=== PATIENT | female | born 1970 | race American Indian/Alaskan Native ===

== ENCOUNTER 2016-08-11 00:22 | Emergency (ER) | payer OTHER ==
[2016-08-11] MEDS ORDERED: TYLENOL PO ONE (06:57)
[2016-08-11] MEDS ORDERED: KEFLEX PO ONE (06:57)
[2016-08-11] MEDS ORDERED: BOOSTRIX IM ONE (06:58)
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
[2016-08-11] MEDS ORDERED: THERMAZENE 50 GRAM TP ONE (08:00)
[2016-08-11 08:06] VITALS: BP 123/78
== END 2016-08-11 08:20 | disposition home or self-care (01) ==
LOC: ED 00:22
DX: T25.222A Burn of second degree of left foot, initial encounter (principal); I10 Essential (primary) hypertension; E11.9 Type 2 diabetes mellitus without complications; Z79.4 Long term (current) use of insulin; X12.XXXA Contact with other hot fluids, initial encounter; Y93.E1 Activity, personal bathing and showering; Y99.9 Unspecified external cause status; Y92.89 Other specified places as the place of occurrence of the external cause
CPT/HCPCS: 82962; 90471; 90715

== ENCOUNTER 2017-05-23 02:39 | Emergency (ER) | payer OTHER ==
[2017-05-23 02:57] VITALS: BP 143/73
[2017-05-23] MEDS: ULTRAM PO ONE (06:07)
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
== END 2017-05-23 06:41 | disposition home or self-care (01) ==
LOC: ED 02:39
DX: S16.1XXA Strain of muscle, fascia and tendon at neck level, initial encounter (principal); S39.012A Strain of muscle, fascia and tendon of lower back, initial encounter; I10 Essential (primary) hypertension; E11.9 Type 2 diabetes mellitus without complications; N17.9 Acute kidney failure, unspecified; V43.12XA Car passenger injured in collision with other type car in nontraffic accident, initial encounter; Y93.89 Activity, other specified; Y92.89 Other specified places as the place of occurrence of the external cause; Y99.8 Other external cause status
CPT/HCPCS: 99282

== ENCOUNTER 2017-09-11 20:22 | Emergency (ER) | payer OTHER ==
[2017-09-12] MEDS ORDERED: KEFLEX PO ONE (03:53)
[2017-09-12] MEDS ORDERED: TYLENOL PO ONE (03:53)
--- NOTE | 2017-09-12 03:54 | Emergency Department Report ---
ED Lower Extremity HPI - General Chief Complaint: Extremity Injury, Lower Stated Complaint: LEFT TOE PAIN HX DM Time Seen by Provider: 09/12/17 03:38 Source: patient Mode of arrival: Ambulatory Limitations: No Limitations - History of Present Illness Initial Comments: 46-year-old female past medical history diabetes, toe amputations presents with complaint of accidentally cutting the skin adjacent to her left great toe this evening. Patient states she was cutting her nail and accidentally snipped skin slightly had edge of the toenail. Patient denies any other injuries. Tetanus vaccine up-to-date as of 2014. Patient states that area is aching her. No large laceration noted. Patient is pointing out tiny less than 1 cm superficial abrasion to left lateral great toe. MD Complaint: other (left toe puncture) Onset/Timin -: hour(s) Injury: Toes: Left (left great toe abrasion) Place: home Severity: mild Worsens With: nothing Context: fall Associated Symptoms: snap/pop sensation Treatments Prior to Arrival: cold therapy - Related Data Home Medications Medication Instructions Recorded Confirmed Last Taken Bimatoprost [Lumigan 0.01%] 1 drop OD QPM 04/17/16 04/17/16 Unknown Insulin Glargine [Lantus VIAL] 15 units SUB-Q QHS 04/17/16 04/17/16 04/16/16 Timolol 0.5% [Timoptic] 1 drops OP BID 04/17/16 04/17/16 Unknown Torsemide [Demadex] 20 mg PO DAILY 04/17/16 04/17/16 Unknown Previous Rx's Medication Instructions Recorded Last Taken Type Metoprolol [Lopressor TAB] 50 mg PO BID 30 Days tablet 11/03/15 Unknown Rx HYDROcodone/APAP 7.5-325 [[place] 1 each PO Q8HR PRN #14 tablet 08/11/16 Unknown Rx 7.5-325 mg TAB] Silver Sulfadiazine [Thermazene] 50 gm TP BID #1 cream..g. 08/11/16 Unknown Rx Cephalexin [Keflex] 500 mg PO Q6HR #20 capsule 10/05/16 Unknown Rx Cyclobenzaprine [Flexeril] 10 mg PO TID PRN #30 tablet 05/23/17 Unknown Rx Naproxen [Naprosyn TAB] 500 mg PO BID PRN #30 tablet 05/23/17 Unknown Rx Bacitracin Zinc Oint [Antibiotic 1 applicatio TP BID #1 tube 09/12/17 Unknown Rx Oint] Cephalexin [Keflex] 500 mg PO BID #14 capsule 09/12/17 Unknown Rx Ibuprofen [Motrin] 400 mg PO Q8H PRN #20 tablet 09/12/17 Unknown Rx Allergies Allergy/AdvReac Type Severity Reaction Status Date / Time No Known Allergies Allergy Verified 10/04/16 22:43 ED Review of Systems ROS: Stated complaint: LEFT TOE PAIN HX DM Other details as noted in HPI Constitutional: denies: chills, fever Eyes: denies: eye pain, eye discharge, vision change ENT: denies: ear pain, throat pain Respiratory: denies: cough, shortness of breath, wheezing Cardiovascular: denies: chest pain, palpitations Endocrine: no symptoms reported Gastrointestinal: denies: abdominal pain, nausea, diarrhea Genitourinary: denies: urgency, dysuria, discharge Musculoskeletal: denies: back pain, joint swelling, arthralgia Skin: denies: rash, lesions Neurological: denies: headache, weakness, paresthesias Psychiatric: denies: anxiety, depression Hematological/Lymphatic: denies: easy bleeding, easy bruising ED Past Medical Hx - Past Medical History Previous Medical History?: Yes Hx Hypertension: Yes Hx Diabetes: Yes Hx Renal Disease: Yes (acute renal failure, resolving) 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 - Surgical History Past Surgical History?: Yes Hx Pacemaker: Yes Additional Surgical History: R great toe amputation 2015 - Social History Smoking Status: Never Smoker Substance Use Type: None - Medications Home Medications: Home Medications Medication Instructions Recorded Confirmed Last Taken Type Metoprolol [Lopressor TAB] 50 mg PO BID 30 Days tablet 11/03/15 04/17/16 Unknown Rx Bimatoprost [[place]um[place] 0.01%] 1 drop OD QPM 04/17/16 04/17/16 Unknown History Insulin Glargine [Lantus VIAL] 15 units SUB-Q QHS 04/17/16 04/17/16 04/16/16 History Timolol 0.5% [Timoptic] 1 drops OP BID 04/17/16 04/17/16 Unknown History Torsemide [Demadex] 20 mg PO DAILY 04/17/16 04/17/16 Unknown History HYDROcodone/APAP 7.5-325 [[place] 1 each PO Q8HR PRN #14 tablet 08/11/16 Unknown Rx 7.5-325 mg TAB] Silver Sulfadiazine [Thermazene] 50 gm TP BID #1 cream..g. 08/11/16 Unknown Rx Cephalexin [Keflex] 500 mg PO Q6HR #20 capsule 10/05/16 Unknown Rx Cyclobenzaprine [Flexeril] 10 mg PO TID PRN #30 tablet 05/23/17 Unknown Rx Naproxen [Naprosyn TAB] 500 mg PO BID PRN #30 tablet 05/23/17 Unknown Rx Bacitracin Zinc Oint [Antibiotic 1 applicatio TP BID #1 tube 09/12/17 Unknown Rx Oint] Cephalexin [Keflex] 500 mg PO BID #14 capsule 09/12/17 Unknown Rx Ibuprofen [Motrin] 400 mg PO Q8H PRN #20 tablet 09/12/17 Unknown Rx ED Physical Exam - General Limitations: No Limitations General appearance: alert, in no apparent distress - Head Head exam: Present: atraumatic, normocephalic - Eye Eye exam: Present: normal appearance, PERRL, EOMI - ENT ENT exam: Present: mucous membranes moist - Neck Neck exam: Present: normal inspection - Respiratory Respiratory exam: Present: normal lung sounds bilaterally. Absent: respiratory distress - Cardiovascular Cardiovascular Exam: Present: regular rate, normal rhythm. Absent: systolic murmur, diastolic murmur, rubs, gallop - GI/Abdominal GI/Abdominal exam: Present: soft, normal bowel sounds - Extremities Exam Extremities exam: Present: normal inspection - Expanded Lower Extremity Exam Left Knee exam: Present: normal inspection, full ROM Lower Leg exam: Present: normal inspection, full ROM Ankle exam: Present: normal inspection, full ROM Foot/Toe exam: Present: abrasion (tiny less than half centimeter lesion to the left anterior lateral great toe. Adjacent to lateral edge of nail bed. No involvement of the nailbed. Nail is intact. No clinical paronychia or fluctuance on exam. Distal capillary refill less than 1 second) Neuro vascular tendon exam: Present: no vascular compromise Gait: Positive: observed and normal 1 - Abrasion here - Back Exam Back exam: Present: normal inspection - Neurological Exam Neurological exam: Present: alert, oriented X3, CN II-XII intact, normal gait - Psychiatric Psychiatric exam: Present: normal affect, normal mood - Skin Skin exam: Present: warm, dry, intact, normal color. Absent: rash ED Course Vital Signs 09/11/17 21:38 Temperature 98.0 F Pulse Rate 91 H Respiratory 17 Rate Blood Pressure 167/91 O2 Sat by Pulse 100 Oximetry ED Lower Extremity MDM - Medical Decision Making A/P: Left great toe abrasion 1-tetanus vaccine up-to-date 2-Motrin when necessary 3-course of Keflex 7 days 4- follow-up with podiatry I provided patient with referral information Critical care attestation.: If time is entered above; I have spent that time in minutes in the direct care of this critically ill patient, excluding procedure time. ED Disposition Clinical Impression: Abrasion of toe of left foot Qualifiers: Encounter type: initial encounter Qualified Code(s): S90.415A - Abrasion, left lesser toe(s), initial encounter Disposition: - TO HOME OR SELFCARE Is pt being admited?: No Does the pt Need Aspirin: No Condition: Stable Instructions: Abrasion (ED) Additional Instructions: [facility] [address] [place] [address] [phone] fax Prescriptions: Bacitracin Zinc Oint [Antibiotic Oint] 1 applicatio TP BID #1 tube Cephalexin [Keflex] 500 mg PO BID #14 capsule Ibuprofen [Motrin] 400 mg PO Q8H PRN #20 tablet PRN Reason: Pain Referrals: QIAN TRAVIS DPM [Staff Physician] - 3-5 Days Time of Disposition: 03:54
[2017-09-12] MEDS ORDERED: TRIPLE ANTIBIOTIC TP ONE (03:57)
[2017-09-12 05:06] VITALS: BP 140/88
== END 2017-09-12 04:20 | disposition home or self-care (01) ==
LOC: ED 20:22
DX: S90.415A Abrasion, left lesser toe(s), initial encounter (principal); I10 Essential (primary) hypertension; E11.9 Type 2 diabetes mellitus without complications; W45.0XXA Nail entering through skin, initial encounter; Y93.89 Activity, other specified; Y92.89 Other specified places as the place of occurrence of the external cause; Y99.8 Other external cause status; Z79.4 Long term (current) use of insulin
CPT/HCPCS: 99282; A6250

== ENCOUNTER 2018-12-02 18:50 | Emergency (ER) | payer MEDICARE, OTHER ==
[2018-12-02 19:49] VITALS: BP 147/77
--- NOTE | 2018-12-02 21:08 | Emergency Department Report ---
ED General Adult HPI - General Chief complaint: Extremity Problem,Nontraumatic Stated complaint: TOE INFECTED Time Seen by Provider: 12/02/18 21:00 Source: patient Mode of arrival: Ambulatory Limitations: No Limitations - History of Present Illness Initial comments: 48 year female with pmh of DM and previous toe amputation presents to ED c/o toe swelling without pain and wants it evaluated for infection. Has appointment with her wound doctor this tuesday and just wants to be sure she could wait. Denies discharge or fever. no redness or pain. Denies trauma. -: Gradual Location: lower extremity Radiation: non-radiation Severity scale (0 -10): 0 Worsens with: none Associated Symptoms: denies other symptoms. denies: diaphoresis, headaches, loss of appetite, malaise, nausea/vomiting, shortness of breath, syncope Treatments Prior to Arrival: none - Related Data Home Medications Medication Instructions Recorded Confirmed Last Taken Bimatoprost [Lumigan 0.01%] 1 drop OD QPM 04/17/16 04/17/16 Unknown Insulin Glargine [Lantus VIAL] 15 units SUB-Q QHS 04/17/16 04/17/16 04/16/16 Timolol 0.5% [Timoptic] 1 drops OP BID 04/17/16 04/17/16 Unknown Torsemide [Demadex] 20 mg PO DAILY 04/17/16 04/17/16 Unknown Previous Rx's Medication Instructions Recorded Last Taken Type Metoprolol [Lopressor TAB] 50 mg PO BID 30 Days tablet 11/03/15 Unknown Rx HYDROcodone/APAP 7.5-325 [[place] 1 each PO Q8HR PRN #14 tablet 08/11/16 Unknown Rx 7.5-325 mg TAB] Silver Sulfadiazine [Thermazene] 50 gm TP BID #1 cream..g. 08/11/16 Unknown Rx cephALEXin [Keflex] 500 mg PO Q6HR #20 capsule 10/05/16 Unknown Rx Cyclobenzaprine [Flexeril] 10 mg PO TID PRN #30 tablet 05/23/17 Unknown Rx Naproxen [Naprosyn TAB] 500 mg PO BID PRN #30 tablet 05/23/17 Unknown Rx Bacitracin Zinc Oint [Antibiotic 1 applicatio TP BID #1 tube 09/12/17 Unknown Rx Oint] Cephalexin [Keflex] 500 mg PO BID #14 capsule 09/12/17 Unknown Rx Ibuprofen [Motrin] 400 mg PO Q8H PRN #20 tablet 09/12/17 Unknown Rx Allergies Allergy/AdvReac Type Severity Reaction Status Date / Time No Known Allergies Allergy Verified 12/02/18 19:20 ED Review of Systems ROS: Stated complaint: TOE INFECTED Other details as noted in HPI Constitutional: denies: chills, fever Eyes: denies: eye pain, eye discharge, vision change ENT: denies: ear pain, throat pain Respiratory: denies: cough, shortness of breath, wheezing Cardiovascular: denies: chest pain, palpitations Endocrine: no symptoms reported Gastrointestinal: denies: abdominal pain, nausea, diarrhea Genitourinary: denies: urgency, dysuria, discharge Musculoskeletal: denies: back pain, joint swelling, arthralgia Skin: denies: rash, lesions Neurological: denies: headache, weakness, paresthesias Psychiatric: denies: anxiety, depression Hematological/Lymphatic: denies: easy bleeding, easy bruising ED Past Medical Hx - Past Medical History Hx Hypertension: Yes Hx Diabetes: Yes Hx Renal Disease: Yes (acute renal failure, resolving) 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 - Surgical History Hx Pacemaker: Yes Additional Surgical History: R great toe amputation 2015 - Social History Smoking Status: Never Smoker Substance Use Type: None - Medications Home Medications: Home Medications Medication Instructions Recorded Confirmed Last Taken Type Metoprolol [Lopressor TAB] 50 mg PO BID 30 Days tablet 11/03/15 04/17/16 Unknown Rx Bimatoprost [Lumigan 0.01%] 1 drop OD QPM 04/17/16 04/17/16 Unknown History Insulin Glargine [Lantus VIAL] 15 units SUB-Q QHS 04/17/16 04/17/16 04/16/16 History Timolol 0.5% [Timoptic] 1 drops OP BID 04/17/16 04/17/16 Unknown History Torsemide [Demadex] 20 mg PO DAILY 04/17/16 04/17/16 Unknown History HYDROcodone/APAP 7.5-325 [[place] 1 each PO Q8HR PRN #14 tablet 08/11/16 Unknown Rx 7.5-325 mg TAB] Silver Sulfadiazine [Thermazene] 50 gm TP BID #1 cream..g. 08/11/16 Unknown Rx cephALEXin [Keflex] 500 mg PO Q6HR #20 capsule 10/05/16 Unknown Rx Cyclobenzaprine [Flexeril] 10 mg PO TID PRN #30 tablet 05/23/17 Unknown Rx Naproxen [Naprosyn TAB] 500 mg PO BID PRN #30 tablet 05/23/17 Unknown Rx Bacitracin Zinc Oint [Antibiotic 1 applicatio TP BID #1 tube 09/12/17 Unknown Rx Oint] Cephalexin [Keflex] 500 mg PO BID #14 capsule 09/12/17 Unknown Rx Ibuprofen [Motrin] 400 mg PO Q8H PRN #20 tablet 09/12/17 Unknown Rx ED Physical Exam - General Limitations: No Limitations General appearance: alert, in no apparent distress - Head Head exam: Present: atraumatic, normocephalic - Eye Eye exam: Present: normal appearance - ENT ENT exam: Present: mucous membranes moist - Neck Neck exam: Present: normal inspection - Respiratory Respiratory exam: Present: normal lung sounds bilaterally. Absent: respiratory distress - Cardiovascular Cardiovascular Exam: Present: regular rate, normal rhythm. Absent: systolic murmur, diastolic murmur, rubs, gallop - GI/Abdominal GI/Abdominal exam: Present: soft, normal bowel sounds - Extremities Exam Extremities exam: Present: normal inspection - Expanded Lower Extremity Exam Right Foot/Toe exam: Present: swelling (mild swelling to toe and thicken toenail. no cellulitis. no fissure. normal skin). Absent: full ROM, tenderness, laceration, ecchymosis, erythema, amputation, puncture wound - Back Exam Back exam: Present: normal inspection - Neurological Exam Neurological exam: Present: alert, oriented X3 - Psychiatric Psychiatric exam: Present: normal affect, normal mood - Skin Skin exam: Present: warm, dry, intact, normal color. Absent: rash ED Course Vital Signs 12/02/18 19:19 Temperature 98.6 F Pulse Rate 91 H Respiratory 18 Rate Blood Pressure 147/77 O2 Sat by Pulse 100 Oximetry ED Medical Decision Making - Medical Decision Making 48 year old female whom just wanted to have her toe check for infection. exam shows no active skin infection, wounds, injury. Possible onychomycosis noted. Pain free and no fever. No discharge. does not appear to have a toe infection. Critical care attestation.: If time is entered above; I have spent that time in minutes in the direct care of this critically ill patient, excluding procedure time. ED Disposition Clinical Impression: Toe swelling Disposition: DC-01 TO HOME OR SELFCARE Is pt being admited?: No Does the pt Need Aspirin: No Condition: Stable Referrals: PRIMARY CARE, [Referring] - 3-5 Days
== END 2018-12-02 21:09 | disposition home or self-care (01) ==
LOC: ED 18:50
DX: M79.89 Other specified soft tissue disorders (principal); I10 Essential (primary) hypertension; E11.9 Type 2 diabetes mellitus without complications; N17.9 Acute kidney failure, unspecified; Z95.0 Presence of cardiac pacemaker; Z89.411 Acquired absence of right great toe; Z79.4 Long term (current) use of insulin
CPT/HCPCS: 99281

== ENCOUNTER 2020-09-09 12:02 | Outpatient (CLI) | payer MEDICARE, OTHER ==
[2020-09-09 12:43] LABS: Basophils % (Auto) 0.1 % (0.0-1.8); Eosinophils # (Auto) 0.1 K/mm3 (0.0-0.4); Eosinophils % (Auto) 1.1 % (0.0-4.3); Hematocrit 25.9 % (30.3-42.9); Hemoglobin 8.7 gm/dl (10.1-14.3); Lymphocytes # (Auto) 0.8 K/mm3 (1.2-5.4); Mean Corpuscular HGB Conc 34 % (30-34); Mean Corpuscular Volume 86 fl (79-97); Monocytes # (Auto) 0.3 K/mm3 (0.0-0.8); Monocytes % (Auto) 6.7 % (0.0-7.3); Platelet Count 122 K/mm3 (140-440); Red Blood Count 3.01 M/mm3 (3.65-5.03); Red Cell Distribution Width 14.4 % (13.2-15.2)
[2020-09-09 13:09] LABS: Calcium 8.4 mg/dL (8.4-10.2)
--- NOTE | 2020-09-09 13:26 | XRay Report ---
CHEST 2 VIEWS INDICATION: CHRONIC KIDNEY DISEASE,STAGE 4. COMPARISON: None FINDINGS: Support devices: None. Heart: Within normal limits. Lungs/pleura: Small bilateral pleural effusions, left greater than right, are identified. There is m ild compressive atelectasis at the lung bases. Otherwise the lungs are clear. No pneumothorax. Additional findings: None. IMPRESSION: Small bilateral pleural effusions. Signer Name: Mundo Berrios Jr, MD Signed: 09/09/2020 1:22 PM Workstation Name: [id number]
[2020-09-09 13:43] LABS: Bacteria,Urine 2+ /HPF (Negative); Bilirubin,Urine NEG (Negative); Blood,Urine SM (Negative); Color,Urine Yellow (Yellow); Mucus,Urine FEW /HPF; Urobilinogen,Urine < 2.0 mg/dL (<2.0)
[2020-09-09 13:45] LABS: Protein,Urine >500 mg/dL (Negative)
[2020-09-09 13:51] LABS: Creatinine,Urine 198.7 mg/dL (0.1-20.0); Protein/Creatinine Ratio,Urine 0.91
== END 2020-09-09 12:03 | disposition home or self-care (01) ==
LOC: CARD 12:02
PROVIDERS: ATTEND Internal Medicine Nephrology
DX: J90 Pleural effusion, not elsewhere classified (principal); J98.11 Atelectasis; I12.9 Hypertensive chronic kidney disease with stage 1 through stage 4 chronic kidney disease, or unspecified chronic kidney disease; N18.4 Chronic kidney disease, stage 4 (severe)
CPT/HCPCS: 36415; 71046; 80048; 81001; 82570; 83970; 84100; 84156; 85025; 86706; 93005

== ENCOUNTER 2020-10-28 23:45 | Emergency (ER) | payer MEDICARE, OTHER ==
[2020-10-29] MEDS ORDERED: HYDROcodone/ACETAMINOPHEN 5-325 MG TAB PO ONE (05:12)
--- NOTE | 2020-10-29 05:16 | Emergency Department Report ---
ED General Adult HPI - General Stated complaint: headache PUI?: No Time Seen by Provider: 10/29/20 04:45 - History of Present Illness Initial comments: Patient is a 49-year-old -[place] female history of hypertension end-st age renal disease dialysis on Tuesday and Tuesday. Patient has dialysis scheduled today. Patient states headache since yesterday. Occipital pressure squeezing. Patient does have history of same. Headache is in usual location and intensity and duration to this point. There is no photophobia there is no nausea vomiting there is no fever or chills. Patient is not sexually active not concerned for . She declines UA at this time. Advises that she is just ready to go to dialysis. There is no dizziness, lightheadedness, chest pain, shortness of breath or back pain. Vital signs are normal. - Related Data Home Medications Medication Instructions Recorded Confirmed Last Taken Bimatoprost [Lumigan 0.01%] 1 drop OD QPM 04/17/16 04/17/16 Unknown Insulin Glargine [Lantus VIAL] 15 units SUB-Q QHS 04/17/16 04/17/16 04/16/16 Timolol 0.5% [Timoptic] 1 drops OP BID 04/17/16 04/17/16 Unknown Torsemide [Demadex] 20 mg PO DAILY 04/17/16 04/17/16 Unknown Previous Rx's Medication Instructions Recorded Last Taken Type Metoprolol [Lopressor TAB] 50 mg PO BID 30 Days tablet 11/03/15 Unknown Rx HYDROcodone/APAP 7.5-325 [[place] 1 each PO Q8HR PRN #14 tablet 08/11/16 Unknown Rx 7.5-325 mg TAB] Silver Sulfadiazine [Thermazene] 50 gm TP BID #1 cream..g. 08/11/16 Unknown Rx cephALEXin [Keflex] 500 mg PO Q6HR #20 capsule 10/05/16 Unknown Rx Cyclobenzaprine [Flexeril] 10 mg PO TID PRN #30 tablet 05/23/17 Unknown Rx Naproxen [Naprosyn TAB] 500 mg PO BID PRN #30 tablet 05/23/17 Unknown Rx Bacitracin Zinc Oint [Antibiotic 1 applicatio TP BID #1 tube 09/12/17 Unknown Rx Oint] Ibuprofen [Motrin] 400 mg PO Q8H PRN #20 tablet 09/12/17 Unknown Rx cephALEXin [Keflex] 500 mg PO BID #14 capsule 09/12/17 Unknown Rx Acetaminophen 1,000 mg PO Q6H PRN #30 capsule 10/29/20 Unknown Rx Metoclopramide [Reglan] 10 mg PO Q6H PRN #12 tablet 10/29/20 Unknown Rx diphenhydrAMINE [Benadryl CAP] 25 mg PO Q6HR PRN #12 capsule 10/29/20 Unknown Rx Allergies Allergy/AdvReac Type Severity Reaction Status Date / Time No Known Allergies Allergy Verified 12/02/18 19:20 ED Review of Systems ROS: Stated complaint: Other details as noted in HPI Constitutional: denies: chills, fever Eyes: denies: eye pain, eye discharge, vision change ENT: denies: ear pain, throat pain Respiratory: denies: cough, shortness of breath, wheezing Cardiovascular: denies: chest pain, palpitations Endocrine: no symptoms reported Gastrointestinal: denies: abdominal pain, nausea, vomiting, diarrhea Genitourinary: denies: urgency, dysuria, discharge Musculoskeletal: denies: back pain, joint swelling, arthralgia Skin: denies: rash, lesions Neurological: headache. 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 - Surgical History Hx Pacemaker: Yes Additional Surgical History: R great toe amputation 2015 - Social History Smoking Status: Never Smoker Substance Use Type: None - Medications Home Medications: Home Medications Medication Instructions Recorded Confirmed Last Taken Type Metoprolol [Lopressor TAB] 50 mg PO BID 30 Days tablet 11/03/15 04/17/16 Unknown Rx Bimatoprost [Lumigan 0.01%] 1 drop OD QPM 04/17/16 04/17/16 Unknown History Insulin Glargine [Lantus VIAL] 15 units SUB-Q QHS 04/17/16 04/17/16 04/16/16 History Timolol 0.5% [Timoptic] 1 drops OP BID 04/17/16 04/17/16 Unknown History Torsemide [Demadex] 20 mg PO DAILY 04/17/16 04/17/16 Unknown History HYDROcodone/APAP 7.5-325 [[place] 1 each PO Q8HR PRN #14 tablet 08/11/16 Unknown Rx 7.5-325 mg TAB] Silver Sulfadiazine [Thermazene] 50 gm TP BID #1 cream..g. 08/11/16 Unknown Rx cephALEXin [Keflex] 500 mg PO Q6HR #20 capsule 10/05/16 Unknown Rx Cyclobenzaprine [Flexeril] 10 mg PO TID PRN #30 tablet 05/23/17 Unknown Rx Naproxen [Naprosyn TAB] 500 mg PO BID PRN #30 tablet 05/23/17 Unknown Rx Bacitracin Zinc Oint [Antibiotic 1 applicatio TP BID #1 tube 09/12/17 Unknown Rx Oint] Ibuprofen [Motrin] 400 mg PO Q8H PRN #20 tablet 09/12/17 Unknown Rx cephALEXin [Keflex] 500 mg PO BID #14 capsule 09/12/17 Unknown Rx Acetaminophen 1,000 mg PO Q6H PRN #30 capsule 10/29/20 Unknown Rx Metoclopramide [Reglan] 10 mg PO Q6H PRN #12 tablet 10/29/20 Unknown Rx diphenhydrAMINE [Benadryl CAP] 25 mg PO Q6HR PRN #12 capsule 10/29/20 Unknown Rx ED Physical Exam - General General appearance: alert, in no apparent distress - Head Head exam: Present: atraumatic, normocephalic, normal inspection - Eye Eye exam: Present: normal appearance, PERRL, EOMI Pupils: Present: normal accommodation - ENT ENT exam: Present: normal exam, normal orophraynx, mucous membranes moist, TM's normal bilaterally, normal external ear exam - Neck Neck exam: Present: normal inspection, full ROM. Absent: tenderness (rom intact and unrestricted no posterior vertebral point tenderness ), meningismus, lymphadenopathy, thyromegaly - Expanded Neck Exam Expanded Neck exam: Absent: midline deformity, anterior neck swelling, thyroid mass, carotid bruit, tracheal deviation - Respiratory Respiratory exam: Present: normal lung sounds bilaterally, wheezes. Absent: respiratory distress - Cardiovascular Cardiovascular Exam: Present: regular rate, normal rhythm, normal heart sounds. Absent: systolic murmur, diastolic murmur, rubs, gallop - GI/Abdominal GI/Abdominal exam: Present: soft, normal bowel sounds. Absent: distended, tenderness, guarding, rebound, rigid, bruit, hernia - Rectal Rectal exam: Present: deferred - Extremities Exam Extremities exam: Present: normal inspection - Back Exam Back exam: Present: normal inspection, full ROM. Absent: tenderness, CVA tenderness (R), CVA tenderness (L) - Neurological Exam Neurological exam: Present: alert, oriented X3, CN II-XII intact, normal gait, reflexes normal. Absent: motor sensory deficit - Expanded Neurological Exam Expanded Patient oriented to: Present: person, place, time Speech: Present: fluid speech Motor strength exam: RUE: 5, LUE: 5, RLE: 5, LLE: 5 Best Eye Response ([place]): (4) open spontaneously Best Motor Response ([place]): (6) obeys commands Best Verbal Response ([place]): (5) oriented [place] Total: 15 - Psychiatric Psychiatric exam: Present: normal affect, normal mood - Skin Skin exam: Present: warm, dry, intact, normal color. Absent: rash ED Medical Decision Making - Medical Decision Making Patient is a 49-year-old -[place] female history of hypertension end- stage renal disease dialysis on Tuesday and Tuesday. Patient has dialysis scheduled today. Patient states headache since yesterday. Occipital pressure squeezing. Patient does have history of same. Headache is in usual location and intensity and duration to this point. There is no photophobia there is no nausea vomiting there is no fever or chills. Patient is not sexually active not concerned for . She declines UA at this time. Advises that she is just ready to go to dialysis. There is no dizziness, lightheadedness, chest pain, shortness of breath or back pain. Vital signs are normal. Patie rate currently is 72 BP is 128/81. Patient is DC'd home in stable condition at this time to self at this time. Patient will follow-up with dialysis center and 1 hour for dialysis as scheduled. Heart Critical care attestation.: If time is entered above; I have spent that time in minutes in the direct care of this critically ill patient, excluding procedure time. ED Disposition Clinical Impression: Headache Qualifiers: Headache type: tension-type Headache chronicity pattern: acute headache Intractability: not intractable Qualified Code(s): G44.209 - Tension-type headache, unspecified, not intractable Disposition: DC-01 TO HOME OR SELFCARE Is pt being admited?: No Does the pt Need Aspirin: No Condition: Stable Instructions: Tension Headache, Adult, [id number] Additional Instructions: follow up with Dialysis Center this morning as scheduled, follow up with primary care doctor as directed Prescriptions: Acetaminophen 1,000 mg PO Q6H PRN #30 capsule PRN Reason: Headache diphenhydrAMINE [Benadryl CAP] 25 mg PO Q6HR PRN #12 capsule PRN Reason: Headache Metoclopramide [Reglan] 10 mg PO Q6H PRN #12 tablet PRN Reason: Headache Referrals: CAROL MANNING MD [Primary Care Provider] - 3-5 Days Time of Disposition: 05:25 Print Language: TELUGU
[2020-10-29 05:37] VITALS: BP 121/86
--- NOTE | 2020-10-29 14:28 | Cat Scan Report ---
CT HEAD/BRAIN WO CON INDICATION: Pre-syncope, Cephalopathy. Headache x 3 days. TECHNIQUE: All CT scans at this location are performed using CT dose reduction for ALARA by means of automated e xposure control. COMPARISON: 03/29/2016 FINDINGS: Visualized paranasal and mastoid sinuses are clear. Ventricles are symmetrical and normal in size. No mass, hemorrhage or other significant abnormality. IMPRESSION: 1. Negative study. Signer Name: Juan Monet MD Signed: 10/29/2020 2:18 AM Workstation Name: [id number]
== END 2020-10-29 05:35 | disposition home or self-care (01) ==
LOC: ED 23:45
DX: R51.9 Headache, unspecified (principal); I10 Essential (primary) hypertension; E11.9 Type 2 diabetes mellitus without complications; Z98.890 Other specified postprocedural states; Z79.1 Long term (current) use of non-steroidal anti-inflammatories (NSAID); Z79.899 Other long term (current) drug therapy
CPT/HCPCS: 70450

== ENCOUNTER 2020-11-11 08:00 | Inpatient (IN) | payer MEDICARE, OTHER ==
[~2020-11-11 08:00] MED LIST: MIDAZOLAM 2 MG/2 ML INJ IV NR; SODIUM CHLORIDE 0.9% 1000 ML 1,000 ML IV SCH; ceFAZolin/Water 2 GM/20 ML 2 GM/20 ML SYRINGE IV NR; fentaNYL 100 MCG/2 ML INJ IV PRN
[2020-11-11 09:11] LABS: Hematocrit 40.9 % (30.3-42.9); Hemoglobin 13.1 gm/dl (10.1-14.3); Mean Corpuscular HGB Conc 32 % (30-34); Mean Corpuscular Volume 90 fl (79-97); Platelet Count 84 K/mm3 (140-440); Red Blood Count 4.55 M/mm3 (3.65-5.03); Red Cell Distribution Width 15.5 % (13.2-15.2)
[2020-11-11 09:22] LABS: Calcium 8.5 mg/dL (8.4-10.2)
--- NOTE | 2020-11-11 09:26 | Anesthesia Consultation ---
Anesthesia Consult and Med Hx Date of service: 11/11/20 - Airway Anesthetic Teeth Evaluation: Poor ROM Head & Neck: Adequate Mental/Hyoid Distance: Adequate Mallampati Class: Class III Intubation Access Assessment: Possibly Difficult - Pre-Operative Health Status ASA Pre-Surgery Classification: ASA3 Proposed Anesthetic Plan: General - Pre-Anesthesia Comment Pre-Anesthesia Comments: Discussed GA vs regional/MAC. Patient requests GA. 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
--- NOTE | 2020-11-11 09:27 | Anesthesia Day of Surgery ---
Anesthesia Day of Surgery - Day of Surgery Patient Examined: Yes Patient H&P Reviewed: Yes Patient is NPO: Yes Beta Blockers: Yes (coreg yesterday PM)
[2020-11-11] MEDS ORDERED: ONDANSETRON 4 MG/2 ML INJ IV PRN ×2 (09:28→15:30)
[2020-11-11] MEDS ORDERED: BUPIVACAINE/PF (0.5%) 5 MG/1 ML 30 ML VIAL INFILTRATI ONE ×2 (11:08→12:13)
[2020-11-11] MEDS ORDERED: LIDOCAINE (1%) 10 MG/1 ML VIAL 20 ML MDV ONE (11:08)
[2020-11-11] MEDS ORDERED: rifAMPin 600 MG VIAL ONE (11:09)
[2020-11-11] MEDS ORDERED: SODIUM CHLORIDE 0.45% 500 ML IV ONE (11:09)
[2020-11-11] MEDS ORDERED: HEPARIN 10,000 UNITS/10 ML VIAL ONE (11:09)
[2020-11-11] MEDS ORDERED: SODIUM CHLORIDE P/F VIAL 10 ML 0 ML ONE (11:09)
[2020-11-11] MEDS ORDERED: propofoL 200 MG/20 ML VIAL IV ONE (11:21)
[2020-11-11] MEDS ORDERED: fentaNYL 100 MCG/2 ML INJ ONE (11:38)
[2020-11-11] MEDS ORDERED: SODIUM CHLORIDE 0.9% 250ML 250 ML ONE (11:45)
[2020-11-11] MEDS ORDERED: PHENYLEPHRINE/NS 1,000 MCG/10 ML SYRINGE (OR USE) IV ONE ×2 (11:49→14:05)
[2020-11-11] MEDS ORDERED: SODIUM CHLORIDE 0.9% 250 ML IVPB IR ONE (12:11)
[2020-11-11] MEDS ORDERED: HEPARIN 10,000 UNITS/10 ML VIAL IR ONE (12:12)
[2020-11-11] MEDS ORDERED: rifAMPin 600 MG VIAL IV ONE (12:14)
[2020-11-11] MEDS ORDERED: SODIUM CHLORIDE 0.9% IRR 1,500 ML BOTTLE IR ONE (12:14)
[2020-11-11] MEDS ORDERED: ONDANSETRON 4 MG/2 ML INJ ONE (14:04)
[2020-11-11] MEDS ORDERED: ePHEDrine SULFATE 50 MG/1 ML INJ ONE (14:06)
[2020-11-11] MEDS ORDERED: GELATIN SPONGE SIZE 100 TP ONE ×2 (14:07→14:48)
[2020-11-11] MEDS ORDERED: THROMBIN (RECOMBINANT) 5,000 UNIT VIAL TP ONE ×2 (14:07→14:47)
[2020-11-11] MEDS ORDERED: ALBUMIN HUMAN 25% (25 GM/100 ML) INJ IV ONE (14:25)
[2020-11-11] MEDS ORDERED: DESMOPRESSIN ACETATE 20 MCG in SODIUM CHLORIDE 0.9% 50 ML IV ONE (15:00)
--- NOTE | 2020-11-11 15:07 | Operative Report ---
Operative Report Operative Report: Date of Procedure: 11/11/2020 Pre-operative Diagnosis: End-Stage Renal Disease Post-operative Diagnosis: Same Procedure(s): 1. The Left Axillary Artery to Axillary Vein Arteriovenous Loop Graft with 6 mm Bovine Artegraft Surgeon: Emile Smith M.D. Drop Wire Aligner: None Anesthesia: Gen. endotracheal anesthesia EBL: 1 L Counts: Correct Complications: None Condition: Stable Findings: The patient had diffuse oozing and bleeding from the upper incision secondary to thrombocytopenia that was eventually controlled with thrombin and Gelfoam as well as FloSeal. Successful creation of left arm AV graft with excellent thrill within the case. Specimen: None Indication: The patient is a 49-year-old male with a history of end-stage renal disease who is on hemodialysis to right internal jugular permacath. She is in need of permanent dialysis access and does not have adequate vein for creation of an a rteriovenous fistula. She is in need of creation of an arteriovenous graft. She was given the risk, benefits, and alternative procedures and consented to the procedure. Description of Procedure: The patient was brought to the operating room and laid in supine position. After general endotracheal anesthesia was achieved the left arm was prepped and draped in normal sterile fashion. I initially made a longitudinal incision on the medial aspect of the arm, just above the antecubital crease and carried down to the brachial artery using sharp dissection. Upon evaluation of the brachial artery I felt the artery was too small for creation of an arteriovenous graft so I decided to create a loop graft. I made a longitudinal incision on the medial aspect of the arm, just below the axillary crease, and carried down to the axillary vein using sharp dissection. This was dissected out circumferentially and controlled with a vessel loop. I then turned my to the axillary artery. The axillary artery was dissected circumferentially and controlled with 2 vessel loops. I used a Elma-Wick tunneler to tunnel from the axillary incision towards the antecubital incision, in a subcutaneous plane, and pulled the graft through the incision for the axillary artery anastomosis. I then used a Elma- Wick tunneler to tunnel from the axillary incision, laterally, towards the antecubital incision pulled the remainder of the graft through that tunnel and a superficial plane for the venous anastomosis. I systemically heparinized the patient with 2000 units of heparin IV and then I put the vessel loops on tension to control flow in the axillary artery and created an arteriotomy using an 11 blade and Laws scissors. I then created an end-to-side anastomosis using a 6-0 Prolene in running fashion. After completing the anastomosis I released the vessel loops allowing flow into the graft which had excellent flow. I reclamped the graft near the arterial anastomosis. I beveled the venous end of the graft and then controlled the axillary vein with a Satinsky clamp. I created a anatomy using 11 blade Laws scissors and the greater end-to-side anastomosis using a 6-0 Prolene in running fashion. Prior to completing the anastomosis I flashed the vein vein as well as the arterial inflow of the graft and then reclamped the graft and vein. I flushed the venotomy with heparinized saline. I then completed the anastomosis and removed all clamps allowing flow into the graft which had a palpable thrill. There was a significant amount of bleeding which was likely secondary to the patient's thrombocytopenia. I eventually achieved hemostasis with a combination of thrombin soaked Gelfoam, FloSeal, and manual pressure. Once hemostasis was achieved both wounds were anesthetized with 0.5% Marcaine and then closed in 2 layers using a 3-0 Vicryl in running fashion in the deep dermal layer and a 4-0 Monocryl in running fashion in the subcuticular layer and then dressed with Dermabond. The patient tolerated the procedure well. All sponge, needle, and instrument counts were correct. The patient was taken to the recovery area in stable condition.
[2020-11-11] MEDS ORDERED: SODIUM CHLORIDE 0.9% 500 ML 500 ML IV SCH (15:11)
[2020-11-11] MEDS ORDERED: ACETAMINOPHEN 325 MG TAB PO PRN (15:30)
[2020-11-11] MEDS: fentaNYL 100 MCG/2 ML INJ IV PRN ×2 (15:33→17:12)
--- NOTE | 2020-11-11 17:33 | Post Anesthesia Evaluation ---
- Post Anesthesia Evaluation Patient Participated: Yes Airway Patent: Yes Stable Respiratory Function: Yes Nausea/Vomiting: No Temp > 96.8F: Yes Pain Manageable: Yes Adequeate Hydration: Yes Anesthesia Complications: No Other Comments: Received 2 units pRBCs in PACU. HD stable, pain well controlled. OK for transfer to floor pending bed availability.
[2020-11-11] MEDS ORDERED: NON-FORMULARY EACH (Bimatoprost [Lumigan 0.01%] 5 ML Drops) OD SCH (18:00)
[2020-11-11 18:34] LABS: Hematocrit 37.2 % (30.3-42.9); Hemoglobin 12.5 gm/dl (10.1-14.3)
[2020-11-11] MEDS ORDERED: SODIUM BICARBONATE PO SCH (20:00)
[2020-11-11] MEDS: CALCIUM CARBONATE 500 MG TAB CHEW PO SCH (21:31)
[2020-11-11] MEDS: TIMOLOL 0.5% OPHTH SOLN 5 ML OU SCH (21:31)
[2020-11-11] MEDS: HEPARIN 5,000 UNIT/1 ML VIAL SUB-Q SCH (21:32)
[2020-11-12 06:53] LABS: Basophils % (Auto) 0.2 % (0.0-1.8); Eosinophils % (Auto) 0.7 % (0.0-4.3); Hematocrit 34.8 % (30.3-42.9); Hemoglobin 11.6 gm/dl (10.1-14.3); Lymphocytes % (Auto) 16.8 % (13.4-35.0); Mean Corpuscular HGB Conc 33 % (30-34); Mean Corpuscular Volume 87 fl (79-97); Monocytes # (Auto) 0.5 K/mm3 (0.0-0.8); Monocytes % (Auto) 8.9 % (0.0-7.3); Red Blood Count 3.99 M/mm3 (3.65-5.03); Red Cell Distribution Width 15.7 % (13.2-15.2)
[2020-11-12 06:57] LABS: Platelet Count 68 K/mm3 (140-440)
[2020-11-12 07:14] LABS: Calcium 8.8 mg/dL (8.4-10.2)
[2020-11-12] MEDS: CALCIUM CARBONATE 500 MG TAB CHEW PO SCH ×2 (08:17→14:52)
[2020-11-12] MEDS: HEPARIN 5,000 UNIT/1 ML VIAL SUB-Q SCH (09:21)
[2020-11-12] MEDS ORDERED: NON-FORMULARY EACH (Atorvastatin 10 MG) PO SCH (10:00)
[2020-11-12] MEDS ORDERED: carvediloL 12.5 MG TAB PO SCH (10:00)
[2020-11-12] MEDS ORDERED: NON-FORMULARY EACH (Amlodipine Besylate 10 MG) PO SCH (10:00)
[2020-11-12] MEDS ORDERED: FUROSEMIDE 40 MG TAB PO SCH (10:00)
[2020-11-12] MEDS ORDERED: LASIX 40 MG PO SCH (10:00)
[2020-11-12] MEDS ORDERED: NON-FORMULARY EACH (Carvedilol 12.5 MG) PO SCH (10:00)
[2020-11-12] MEDS ORDERED: amLODIPine 10 MG TAB PO SCH (10:00)
[2020-11-12] MEDS: TIMOLOL 0.5% OPHTH SOLN 5 ML OU SCH (10:57)
--- NOTE | 2020-11-12 11:31 | Consultation ---
History of Present Illness - Reason for Consult Consult date: 11/12/20 end stage renal disease - History of Present Illness This is a 50 year old female who presented to the hospital yesterday on 11/11/20 for Left AVF placement. Patient lost reportedly 1200 ml of blood during the pr ocedure and required blood transfusions and was kept overnight for observation. Platelets are also low. This patient has ESRD and receives hemodialysis every M,W, at [facility] via her perm-catheter. Patient also has history of Diabetes Mellitus. We are being consulted for management of this patient's ESRD. Past History Past Medical History: diabetes, dialysis, ESRD, hypertension Past Surgical History: Other (Perm-cath placement, Left AVF placement) Social history: no significant social history Family history: no significant family history Medications and Allergies Allergies Allergy/AdvReac Type Severity Reaction Status Date / Time No Known Allergies Allergy Verified 11/10/20 13:21 Home Medications Medication Instructions Recorded Confirmed Last Taken Type Bimatoprost [Lumigan 0.01%] 1 drop OD QPM 04/17/16 11/11/20 11/10/20 19:00 History Timolol 0.5% [Timoptic] 1 drops OP BID 04/17/16 11/11/20 11/10/20 18:00 History Amlodipine Besylate 10 mg PO DAILY 11/11/20 11/11/20 11/10/20 17:00 History AtorvaSTATin 10 mg PO DAILY 11/11/20 11/11/20 11/10/20 17:00 History Lasix 40 mg PO DAILY 11/11/20 11/11/20 11/10/20 17:00 History Sodium Bicarbonate 2 tab PO TID 11/11/20 11/11/20 11/10/20 17:00 History carvediloL 12.5 mg PO DAILY 11/11/20 11/11/20 11/10/20 17:00 History HYDROcodone/APAP 7.5-325 [[place] 1 each PO Q6HR PRN #40 tablet 11/12/20 Unknown Rx 7.5/325] Active Meds: Active Medications Acetaminophen (Acetaminophen 325 Mg Tab) 650 mg PO Q4H PRN PRN Reason: Pain MILD(1-3)/Fever >100.5/GONZALES Amlodipine Besylate (Amlodipine 10 Mg Tab) 10 mg PO DAILY [facility] Last Admin: 11/12/20 09:21 Dose: 10 mg Documented by: Atorvastatin Calcium (Atorvastatin 10 Mg Tab) 10 mg PO QHS [facility] Last Admin: 11/11/20 21:31 Dose: 10 mg Documented by: Calcium Carbonate/Glycine (Calcium Carbonate 500 Mg Tab Chew) 1,000 mg PO TID [facility] Last Admin: 11/12/20 08:17 Dose: 1,000 mg Documented by: Carvedilol (Carvedilol 12.5 Mg Tab) 12.5 mg PO DAILY [facility] Last Admin: 11/12/20 09:21 Dose: 12.5 mg Documented by: Furosemide (Furosemide 40 Mg Tab) 40 mg PO DAILY [facility] Last Admin: 11/12/20 09:21 Dose: 40 mg Documented by: Heparin Sodium (Porcine) (Heparin 5,000 Unit/1 Ml Vial) 5,000 unit SUB-Q Q12HR [facility] Last Admin: 11/12/20 09:21 Dose: 5,000 unit Documented by: Sodium Chloride (Nacl 0.9% 500 Ml) 500 mls @ 0 mls/hr IV ONCE [facility] Stop: 11/12/20 15:10 Latanoprost (Latanoprost 0.005% Ophth Soln 2.5 Ml) 1 drops OU QPM [facility] Ondansetron HCl (Ondansetron 4 Mg/2 Ml Inj) 4 mg IV Q8H PRN PRN Reason: Nausea And Vomiting Last Admin: 11/12/20 09:20 Dose: 4 mg Documented by: Sodium Chloride (Sodium Chloride 0.9% 10 Ml Flush Syringe) 10 ml IV BID [facility] Last Admin: 11/12/20 09:22 Dose: 10 ml Documented by: Sodium Chloride (Sodium Chloride 0.9% 10 Ml Flush Syringe) 10 ml IV PRN PRN PRN Reason: LINE FLUSH Timolol Maleate (Timolol 0.5% Ophth Soln 5 Ml) 1 drops OU BID [facility] Last Admin: 11/12/20 10:57 Dose: Not Given Documented by: Review of Systems Constitutional: no weight loss, no weight gain, no fever, no chills, no anorexia, no fatigue, no weakness, no malaise, no lethargy, no poor appetite, no daytime sleepiness, no chronic pain Ears, nose, mouth and throat: other (Right eye closed), no ear pain, no ear discharge, no tinnitis, no decreased hearing, no nose pain Breasts: deferred Cardiovascular: no chest pain, no orthopnea, no palpitations, no rapid/irregular heart beat, no edema, no syncope, no lightheadedness, no shortness of breath Respiratory: no cough, no cough with sputum, no excessive sputum, no shortness of breath, no dyspnea on exertion Gastrointestinal: no abdominal pain, no nausea, no vomiting, no diarrhea, no constipation, no change in bowel habits Genitourinary Female: no dyspareunia, no dysmenorrhea, no pelvic pain, no flank pain, no menorrhagia, no dysuria Rectal: no pain, no incontinence, no bleeding, no itching, no hemorrhoids Musculoskeletal: no neck stiffness, no neck pain, no shooting arm pain, no arm numbness/tingling, no low back pain, no redness of joints Integumentary: no rash, no pruritis, no redness, no sores, no wounds Neurological: no head injury, no transient paralysis, no paralysis, no weakness, no parathesias, no numbness Psychiatric: no anxiety, no memory loss, no change in sleep habits, no sleep disturbances, no insomnia Endocrine: no cold intolerance, no heat intolerance, no polyphagia, no excessive thirst, no polydipsia Exam - Vital Signs Vital signs: Vital Signs Temp Pulse Resp BP Pulse Ox 98.6 F 88 12 120/81 100 11/11/20 06:28 11/11/20 06:28 11/11/20 06:28 11/11/20 06:28 11/11/20 06:28 - General Appearance General appearance: well-developed, appears stated age EENT: ATNC, PERRL, hearing intact, vision intact Neck: Present: neck supple, trachea midline Respiratory: Decreased Breath Sounds Heart: S1S2 Gastrointestinal: Present: normoactive bowel sounds Integumentary: warm and dry Neurologic: alert and oriented x3 Musculoskeletal: Present: other (No edema. Left arm swollen) Results - Lab Results 11/12/20 05:40 11/12/20 05:40 Most recent lab results Calcium 8.8 mg/dL (8.4-10.2) 11/12/20 05:40 Assessment and Plan Assessment: (Principal Problem) Post-op blood Loss Thrombocytopenia End Stage Renal Disease on HD Hypertension S/P Left AVF placement Diabetes Mellitus Plan: Hemodialysis today for UF and clearance Fluid restriction of 1 liter per day S/P 2 units of PRBC transfusions yesterday for post-op blood loss HGB within goal at 11.6 today Obtain daily weights Monitor I/O's Dialysis diet Assess dialysis needs daily Can be discharged home today after HD from Nephrology standpoint
--- NOTE | 2020-11-12 11:51 | Progress Note ---
Assessment and Plan The patient is postoperative day #1 from a left axillary artery to axillary vein loop graft. She required transfusion of 2 units of packed red blood cells and her hemoglobin responded appropriately. Her graft has a diminished thrill. She may require intervention in the outpatient setting to optimize the graft however this will be performed in 2 weeks after the graft has scarred into the surrounding tissue. She will undergo dialysis in the hospital and can be discharged afterwards. Subjective Date of service: 11/12/20 Interval history: The patient states her left arm is a little stiff but she has no other complaints. She denies any numbness in her left hand. Objective - Constitutional Vitals: Vital Signs - 12hr 11/11/20 11/12/20 11/12/20 23:56 00:21 00:25 Temperature 98.5 F Pulse Rate 93 H 100 H Respiratory 18 18 Rate Blood Pressure 166/90 O2 Sat by Pulse 100 98 Oximetry 11/12/20 11/12/20 11/12/20 04:48 08:48 08:50 Temperature 97.9 F 98.3 F Pulse Rate 106 H 107 H Respiratory 18 18 18 Rate Blood Pressure 177/91 169/85 O2 Sat by Pulse 100 98 98 Oximetry 11/12/20 11/12/20 10:40 11:04 Temperature Pulse Rate 98 H 95 H Respiratory Rate Blood Pressure 137/77 O2 Sat by Pulse 99 Oximetry General appearance: Present: no acute distress - Respiratory Respiratory effort: normal - Cardiovascular Rhythm: regular Extremities: no ischemia, abnormal (Left arm incisions are clean, dry, and intact. There is some swelling of the left arm without evidence of a hematoma. The left arm AV graft has a thrill however this is somewhat diminished) - Labs CBC & Chem 7: 11/12/20 05:40 11/12/20 05:40 Labs: Abnormal lab results 11/11/20 11/11/20 11/12/20 Range/Units 14:14 18:13 05:40 RDW 15.7 H (13.2-15.2) % Plt Count 75 L 68 L (140-440) K/mm3 [place] % (Auto) 8.9 H (0.0-7.3) % Lymph # (Auto) 1.0 L (1.2-5.4) K/mm3 Seg Neutrophils % 73.4 H (40.0-70.0) % Creatinine (0.6-1.2) mg/dL Glucose (65-100) mg/dL Crossmatch See Detail 11/12/20 Range/Units 05:40 RDW (13.2-15.2) % Plt Count (140-440) K/mm3 [place] % (Auto) (0.0-7.3) % Lymph # (Auto) (1.2-5.4) K/mm3 Seg Neutrophils % (40.0-70.0) % Creatinine 3.6 H (0.6-1.2) mg/dL Glucose 166 H (65-100) mg/dL Crossmatch Medications & Allergies - Medications Allergies/Adverse Reactions: Allergies No Known Allergies Allergy (Verified 11/10/20 13:21) Home Medications: Home Medications Medication Instructions Recorded Confirmed Last Taken Type Bimatoprost [Lumigan 0.01%] 1 drop OD QPM 04/17/16 11/11/20 11/10/20 19:00 History Timolol 0.5% [Timoptic] 1 drops OP BID 04/17/16 11/11/20 11/10/20 18:00 History Amlodipine Besylate 10 mg PO DAILY 11/11/20 11/11/20 11/10/20 17:00 History AtorvaSTATin 10 mg PO DAILY 11/11/20 11/11/20 11/10/20 17:00 History Lasix 40 mg PO DAILY 11/11/20 11/11/20 11/10/20 17:00 History Sodium Bicarbonate 2 tab PO TID 11/11/20 11/11/20 11/10/20 17:00 History carvediloL 12.5 mg PO DAILY 11/11/20 11/11/20 11/10/20 17:00 History Active Medications: Generic Name Dose Route Start Last Admin Trade Name Freq PRN Reason Stop Dose Admin Acetaminophen 650 mg 11/11/20 15:30 Acetaminophen 325 Mg Tab PO Q4H PRN Pain MILD(1-3)/Fever >100.5/GONZALES Amlodipine Besylate 10 mg 11/12/20 10:00 11/12/20 09:21 Amlodipine 10 Mg Tab PO 10 mg DAILY [facility] Administration Atorvastatin Calcium 10 mg 11/11/20 22:00 11/11/20 21:31 Atorvastatin 10 Mg Tab PO 10 mg QHS [facility] Administration Calcium Carbonate/Glycine 1,000 mg 11/11/20 20:00 11/12/20 08:17 Calcium Carbonate 500 Mg Tab Chew PO 1,000 mg TID [facility] Administration Carvedilol 12.5 mg 11/12/20 10:00 11/12/20 09:21 Carvedilol 12.5 Mg Tab PO 12.5 mg DAILY [facility] Administration Furosemide 40 mg 11/12/20 10:00 11/12/20 09:21 Furosemide 40 Mg Tab PO 40 mg DAILY [facility] Administration Heparin Sodium (Porcine) 5,000 unit 11/11/20 22:00 11/12/20 09:21 Heparin 5,000 Unit/1 Ml Vial SUB-Q 5,000 unit Q12HR [facility] Administration Sodium Chloride 500 mls @ 0 mls/hr 11/11/20 15:11 Nacl 0.9% 500 Ml IV 11/12/20 15:10 ONCE [facility] As Directed Latanoprost 1 drops 11/12/20 18:00 Latanoprost 0.005% Ophth Soln 2.5 Ml OU QPM [facility] Ondansetron HCl 4 mg 11/11/20 15:30 11/12/20 09:20 Ondansetron 4 Mg/2 Ml Inj IV 4 mg Q8H PRN Administration Nausea And Vomiting Sodium Chloride 10 ml 11/11/20 22:00 11/12/20 09:22 Sodium Chloride 0.9% 10 Ml Flush Syringe IV 10 ml BID [facility] Administration Sodium Chloride 10 ml 11/11/20 15:30 Sodium Chloride 0.9% 10 Ml Flush Syringe IV PRN PRN LINE FLUSH Timolol Maleate 1 drops 11/11/20 22:00 11/12/20 10:57 Timolol 0.5% Ophth Soln 5 Ml OU Not Given BID [facility]
--- NOTE | 2020-11-12 11:53 | Short Stay Summary ---
Short Stay Documentation Date of service: 11/12/20 Narrative H&P: See H&P - Allergies and Medications Current Medications: Allergies No Known Allergies Allergy (Verified 11/10/20 13:21) Home Medications Medication Instructions Recorded Confirmed Last Taken Type Bimatoprost [Lumigan 0.01%] 1 drop OD QPM 04/17/16 11/11/20 11/10/20 19:00 History Timolol 0.5% [Timoptic] 1 drops OP BID 04/17/16 11/11/20 11/10/20 18:00 History Amlodipine Besylate 10 mg PO DAILY 11/11/20 11/11/20 11/10/20 17:00 History AtorvaSTATin 10 mg PO DAILY 11/11/20 11/11/20 11/10/20 17:00 History Lasix 40 mg PO DAILY 11/11/20 11/11/20 11/10/20 17:00 History Sodium Bicarbonate 2 tab PO TID 11/11/20 11/11/20 11/10/20 17:00 History carvediloL 12.5 mg PO DAILY 11/11/20 11/11/20 11/10/20 17:00 History Active Medications Acetaminophen (Acetaminophen 325 Mg Tab) 650 mg PO Q4H PRN PRN Reason: Pain MILD(1-3)/Fever >100.5/GONZALES Amlodipine Besylate (Amlodipine 10 Mg Tab) 10 mg PO DAILY [facility] Last Admin: 11/12/20 09:21 Dose: 10 mg Documented by: Atorvastatin Calcium (Atorvastatin 10 Mg Tab) 10 mg PO QHS [facility] Last Admin: 11/11/20 21:31 Dose: 10 mg Documented by: Calcium Carbonate/Glycine (Calcium Carbonate 500 Mg Tab Chew) 1,000 mg PO TID [facility] Last Admin: 11/12/20 08:17 Dose: 1,000 mg Documented by: Carvedilol (Carvedilol 12.5 Mg Tab) 12.5 mg PO DAILY [facility] Last Admin: 11/12/20 09:21 Dose: 12.5 mg Documented by: Furosemide (Furosemide 40 Mg Tab) 40 mg PO DAILY [facility] Last Admin: 11/12/20 09:21 Dose: 40 mg Documented by: Heparin Sodium (Porcine) (Heparin 5,000 Unit/1 Ml Vial) 5,000 unit SUB-Q Q12HR [facility] Last Admin: 11/12/20 09:21 Dose: 5,000 unit Documented by: Sodium Chloride (Nacl 0.9% 500 Ml) 500 mls @ 0 mls/hr IV ONCE [facility] Stop: 11/12/20 15:10 Latanoprost (Latanoprost 0.005% Ophth Soln 2.5 Ml) 1 drops OU QPM [facility] Ondansetron HCl (Ondansetron 4 Mg/2 Ml Inj) 4 mg IV Q8H PRN PRN Reason: Nausea And Vomiting Last Admin: 11/12/20 09:20 Dose: 4 mg Documented by: Sodium Chloride (Sodium Chloride 0.9% 10 Ml Flush Syringe) 10 ml IV BID [facility] Last Admin: 11/12/20 09:22 Dose: 10 ml Documented by: Sodium Chloride (Sodium Chloride 0.9% 10 Ml Flush Syringe) 10 ml IV PRN PRN PRN Reason: LINE FLUSH Timolol Maleate (Timolol 0.5% Ophth Soln 5 Ml) 1 drops OU BID [facility] Last Admin: 11/12/20 10:57 Dose: Not Given Documented by: - Physical exam Extremities: no ischemia, abnormal (Left arm incisions are clean, dry, and intact. There is some swelling of the left arm without evidence of a hematoma. The left arm AV graft has a thrill however this is somewhat diminished) - Hospital course Hospital course: The patient was admitted and underwent creation of a left axillary artery axillary vein arteriovenous loop graft on 11/11/2020. She had a significant amount of bleeding secondary to thrombocytopenia and received 2 units of packed red blood cells with an adequate response in her hemoglobin. She is doing well on postoperative day #1 and is clinically ready for discharge home after she undergoes hemodialysis. She will follow up with me in 2 weeks in the office. Date of Procedure: 11/11/2020 Pre-operative Diagnosis: End-Stage Renal Disease Post-operative Diagnosis: Same Procedure(s): 1. The Left Axillary Artery to Axillary Vein Arteriovenous Loop Graft with 6 mm Bovine Artegraft Surgeon: Emile Smith M.D. Lay Out Machine Operator: None Anesthesia: Gen. endotracheal anesthesia EBL: 1 L Counts: Correct Complications: None Condition: Stable Findings: The patient had diffuse oozing and bleeding from the upper incision secondary to thrombocytopenia that was eventually controlled with thrombin and Gelfoam as well as FloSeal. Successful creation of left arm AV graft with excellent thrill within the case. Specimen: None Indication: The patient is a 49-year-old male with a history of end-stage renal disease who is on hemodialysis to right internal jugular permacath. She is in need of pe rmanent dialysis access and does not have adequate vein for creation of an arteriovenous fistula. She is in need of creation of an arteriovenous graft. She was given the risk, benefits, and alternative procedures and consented to the procedure. Description of Procedure: The patient was brought to the operating room and laid in supine position. After general endotracheal anesthesia was achieved the left arm was prepped and draped in normal sterile fashion. I initially made a longitudinal incision on the medial aspect of the arm, just above the antecubital crease and carried down to the brachial artery using sharp dissection. Upon evaluation of the brachial artery I felt the artery was too small for creation of an arteriovenous graft so I decided to create a loop graft. I made a longitudinal incision on the medial aspect of the arm, just below the axillary crease, and carried down to the axillary vein using sharp dissection. This was dissected out circumferentially and controlled with a vessel loop. I then turned my to the axillary artery. The axillary artery was dissected circumferentially and controlled with 2 vessel loops. I used a Elma-Wick tunneler to tunnel from the axillary incision towards the antecubital incision, in a subcutaneous plane, and pulled the graft through the incision for the axillary artery anastomosis. I then used a Elma-Wick tunneler to tunnel from the axillary incision, laterally, towards the antecubital incision pulled the remainder of the graft through that tunnel and a superficial plane for the venous anastomosis. I systemically heparinized the patient with 2000 units of heparin IV and then I put the vessel loops on tension to control flow in the axillary artery and created an arteriotomy using an 11 blade and Laws scissors. I then created an end-to-side anastomosis using a 6-0 Prolene in running fashion. After completing the anastomosis I released the vessel loops allowing flow into the graft which had excellent flow. I reclamped the graft near the arterial anastomosis. I beveled the venous end of the graft and then controlled the axillary vein with a Satinsky clamp. I created a anatomy using 11 blade Laws scissors and the greater end-to-side anastomosis using a 6-0 Prolene in running fashion. Prior to completing the anastomosis I flashed the vein vein as well as the arterial inflow of the graft and then reclamped the graft and vein. I flushed the venotomy with heparinized saline. I then completed the anastomosis and removed all clamps allowing flow into the graft which had a palpable thrill. There was a significant amount of bleeding which was likely secondary to the patient's thrombocytopenia. I eventually achieved hemostasis with a combination of thrombin soaked Gelfoam, FloSeal, and manual pressure. Once hemostasis was achieved both wounds were anesthetized with 0.5% Marcaine and then closed in 2 layers using a 3-0 Vicryl in running fashion in the deep dermal layer and a 4-0 Monocryl in running fashion in the subcuticular layer and then dressed with Dermabond. The patient tolerated the procedure well. All sponge, needle, and instrument counts were correct. The patient was taken to the recovery area in stable condition. - Disposition Condition at discharge: Good Disposition: DC-01 TO HOME OR SELFCARE Short Stay Discharge Plan Activity: other (No heavy lifting with left arm for 2 weeks. Okay to wash left arm wounds with soap and water but do not soak in water for 2 weeks.) Wound: open to air, keep clean and dry Follow up with: EMILE SMITH MD [Staff Physician] - 14 Days Prescriptions: HYDROcodone/APAP 7.5-325 [[place] 7.5/325] 1 each PO Q6HR PRN #40 tablet PRN Reason: Pain
--- NOTE | 2020-11-12 12:37 | Consultation ---
History of Present Illness - Reason for Consult Consult date: 11/12/20 Medical management Requesting physician: JAYLYN SMITH - History of Present Illness 50 YO Female with DM, ESRD, HTN, HLD, PVD. Consult placed by Dr. Smith for medical management. Patient admitted to medical floor for elective vascular procedure. Patient seen and evaluated in her room. Patient denies fever, chills, chest pain, palpitation, productive cough, skin rash, recent ill contacts or known exposure to COVID-19. No reported nursing events. Patient denies complaints at time of exam and interview. Past History Past Medical History: diabetes, dialysis, ESRD, hypertension, PVD Past Surgical History: Other (Perm-cath placement, Left AVF placement) Social history: no significant social history Family history: no significant family history Medications and Allergies Allergies Allergy/AdvReac Type Severity Reaction Status Date / Time No Known Allergies Allergy Verified 11/10/20 13:21 Home Medications Medication Instructions Recorded Confirmed Last Taken Type Bimatoprost [Lumigan 0.01%] 1 drop OD QPM 04/17/16 11/11/20 11/10/20 19:00 History Timolol 0.5% [Timoptic] 1 drops OP BID 04/17/16 11/11/20 11/10/20 18:00 History Amlodipine Besylate 10 mg PO DAILY 11/11/20 11/11/20 11/10/20 17:00 History AtorvaSTATin 10 mg PO DAILY 11/11/20 11/11/20 11/10/20 17:00 History Lasix 40 mg PO DAILY 11/11/20 11/11/20 11/10/20 17:00 History Sodium Bicarbonate 2 tab PO TID 11/11/20 11/11/20 11/10/20 17:00 History carvediloL 12.5 mg PO DAILY 11/11/20 11/11/20 11/10/20 17:00 History HYDROcodone/APAP 7.5-325 [[place] 1 each PO Q6HR PRN #40 tablet 11/12/20 Unknown Rx 7.5/325] Active Meds: Active Medications Acetaminophen (Acetaminophen 325 Mg Tab) 650 mg PO Q4H PRN PRN Reason: Pain MILD(1-3)/Fever >100.5/GONZALES Amlodipine Besylate (Amlodipine 10 Mg Tab) 10 mg PO DAILY BRIAN Last Admin: 11/12/20 09:21 Dose: 10 mg Documented by: Atorvastatin Calcium (Atorvastatin 10 Mg Tab) 10 mg PO QHS [facility] Last Admin: 11/11/20 21:31 Dose: 10 mg Documented by: Calcium Carbonate/Glycine (Calcium Carbonate 500 Mg Tab Chew) 1,000 mg PO TID [facility] Last Admin: 11/12/20 08:17 Dose: 1,000 mg Documented by: Carvedilol (Carvedilol 12.5 Mg Tab) 12.5 mg PO DAILY [facility] Last Admin: 11/12/20 09:21 Dose: 12.5 mg Documented by: Furosemide (Furosemide 40 Mg Tab) 40 mg PO DAILY [facility] Last Admin: 11/12/20 09:21 Dose: 40 mg Documented by: Heparin Sodium (Porcine) (Heparin 5,000 Unit/1 Ml Vial) 5,000 unit SUB-Q Q12HR [facility] Last Admin: 11/12/20 09:21 Dose: 5,000 unit Documented by: Sodium Chloride (Nacl 0.9% 500 Ml) 500 mls @ 0 mls/hr IV ONCE [facility] Stop: 11/12/20 15:10 Latanoprost (Latanoprost 0.005% Ophth Soln 2.5 Ml) 1 drops OU QPM [facility] Ondansetron HCl (Ondansetron 4 Mg/2 Ml Inj) 4 mg IV Q8H PRN PRN Reason: Nausea And Vomiting Last Admin: 11/12/20 09:20 Dose: 4 mg Documented by: Sodium Chloride (Sodium Chloride 0.9% 10 Ml Flush Syringe) 10 ml IV BID [facility] Last Admin: 11/12/20 09:22 Dose: 10 ml Documented by: Sodium Chloride (Sodium Chloride 0.9% 10 Ml Flush Syringe) 10 ml IV PRN PRN PRN Reason: LINE FLUSH Timolol Maleate (Timolol 0.5% Ophth Soln 5 Ml) 1 drops OU BID [facility] Last Admin: 11/12/20 10:57 Dose: Not Given Documented by: Review of Systems Constitutional: no weight loss, no weight gain, no fever, no sweats Ears, nose, mouth and throat: no ear pain, no ear discharge, no tinnitis, no nasal discharge Breasts: no change in shape, no swelling, no mass Cardiovascular: no chest pain, no orthopnea, no palpitations, no edema, no syncope Respiratory: no cough, no cough with sputum, no excessive sputum, no shortness of breath Gastrointestinal: no abdominal pain, no nausea, no vomiting, no diarrhea, no constipation, no hematemesis Genitourinary Female: no pelvic pain, no flank pain, no dysuria, no urinary frequency, no urgency Rectal: no pain, no incontinence, no bleeding Musculoskeletal: no neck stiffness, no neck pain, no shooting arm pain, no arm numbness/tingling, no low back pain Integumentary: no rash, no pruritis, no redness, no sores, no wounds Neurological: no transient paralysis, no paralysis, no tingling, no tremors Psychiatric: no anxiety, no change in sleep habits, no hypersomnia, no change in appetite, no change in libido Endocrine: no cold intolerance, no heat intolerance, no excessive thirst, no polydipsia, no excessive sweating Hematologic/Lymphatic: no easy bruising, no easy bleeding Allergic/Immunologic: no urticaria, no allergic rhinitis, no wheezing Exam - Constitutional Vitals: Temp Pulse Resp BP Pulse Ox 98.3 F 95 H 18 137/77 99 11/12/20 08:50 11/12/20 11:04 11/12/20 08:50 11/12/20 11:04 11/12/20 11:04 General appearance: Present: mild distress - EENT Eyes: Present: PERRL ENT: hearing intact, clear oral mucosa - Neck Neck: Present: supple, normal ROM - Respiratory Respiratory effort: normal Respiratory: bilateral: CTA - Cardiovascular Heart Sounds: Present: S1 & S2. Absent: rub, click - Extremities Extremities: pulses symmetrical, No edema Peripheral Pulses: within normal limits - Abdominal General gastrointestinal: Present: soft, non-tender, non-distended, normal bowel sounds Female genitourinary: Present: normal - Integumentary Integumentary: Present: clear, warm, dry - Musculoskeletal Musculoskeletal: gait normal, strength equal bilaterally - Psychiatric Psychiatric: appropriate mood/affect, intact judgment & insight - Neurologic Neurologic: CNII-XII intact, moves all extremities Results - Labs CBC & Chem 7: 11/12/20 05:40 11/12/20 05:40 Labs: Abnormal lab results 11/11/20 11/11/20 11/12/20 Range/Units 14:14 18:13 05:40 RDW 15.7 H (13.2-15.2) % Plt Count 75 L 68 L (140-440) K/mm3 Ross % (Auto) 8.9 H (0.0-7.3) % Lymph # (Auto) 1.0 L (1.2-5.4) K/mm3 Seg Neutrophils % 73.4 H (40.0-70.0) % Creatinine (0.6-1.2) mg/dL Glucose (65-100) mg/dL Crossmatch See Detail 11/12/20 Range/Units 05:40 RDW (13.2-15.2) % Plt Count (140-440) K/mm3 Ross % (Auto) (0.0-7.3) % Lymph # (Auto) (1.2-5.4) K/mm3 Seg Neutrophils % (40.0-70.0) % Creatinine 3.6 H (0.6-1.2) mg/dL Glucose 166 H (65-100) mg/dL Crossmatch Assessment and Plan - Patient Problems (1) Hypertension Current Visit: Yes Status: Acute Qualifiers: Hypertension type: essential hypertension Qualified Code(s): I10 - Essential (primary) hypertension Plan to address problem: Monitor blood pressure every shift, continue medical management (2) End stage renal disease Current Visit: Yes Status: Acute Plan to address problem: Nephrology team consulted, dialysis as per renal team. (3) Hyperlipidemia Current Visit: Yes Status: Acute Qualifiers: Hyperlipidemia type: mixed hyperlipidemia Qualified Code(s): E78.2 - Mixed hyperlipidemia Plan to address problem: Low-cholesterol diet, risk factor reduction, supportive care. (4) Diabetes Current Visit: Yes Status: Acute Plan to address problem: Sliding-scale insulin therapy, Accu-Chek, hypoglycemia protocol, consistent carbohydrate diet.
--- NOTE | 2020-11-12 14:02 | Post Anesthesia Evaluation ---
- Post Anesthesia Evaluation Patient Participated: Yes Airway Patent: Yes Stable Respiratory Function: Yes Nausea/Vomiting: No Temp > 96.8F: Yes Pain Manageable: Yes Adequeate Hydration: Yes Anesthesia Complications: No Block Receding Appropriately: Not Applicable Patient on Ventilator: No Other Comments: ambulates, pain is under control
[2020-11-12 14:28] LABS: Hepatitis B Surface Antigen Non-Reactive (Negative); Hepatitis C Virus Antibody Non-Reactive (NonReactive)
[2020-11-12] MEDS ORDERED: PANTOPRAZOLE 40 MG TAB PO SCH (16:30)
[2020-11-12] MEDS ORDERED: LATANOPROST 0.005% OPHTH SOLN 2.5 ML OU SCH (18:00)
[2020-11-12 20:48] VITALS: BP 162/88
== END 2020-11-12 21:30 | disposition home health service (06) | DRG 673 ==
LOC: OR 08:00 → 4A 15:30
PROVIDERS: ADMIT Surgery Vascular Surgery; ATTEND Surgery Vascular Surgery
PROC: 5A1D70Z Performance of Urinary Filtration, Intermittent, Less than 6 Hours Per Day (ICD-10-PCS; principal; 2020-11-11)
PROC: 03160ZD Bypass Left Axillary Artery to Upper Arm Vein, Open Approach (ICD-10-PCS; 2020-11-11)
PROC: 30233N1 Transfusion of Nonautologous Red Blood Cells into Peripheral Vein, Percutaneous Approach (ICD-10-PCS; 2020-11-11)
DX: I12.0 Hypertensive chronic kidney disease with stage 5 chronic kidney disease or end stage renal disease (principal); N18.6 End stage renal disease; E11.51 Type 2 diabetes mellitus with diabetic peripheral angiopathy without gangrene; E78.2 Mixed hyperlipidemia; D69.6 Thrombocytopenia, unspecified; E11.22 Type 2 diabetes mellitus with diabetic chronic kidney disease; Z95.818 Presence of other cardiac implants and grafts; Z86.73 Personal history of transient ischemic attack (TIA), and cerebral infarction without residual deficits; Z89.429 Acquired absence of other toe(s), unspecified side; Z99.2 Dependence on renal dialysis; Z79.899 Other long term (current) drug therapy; Z79.891 Long term (current) use of opiate analgesic; Z79.01 Long term (current) use of anticoagulants
CPT/HCPCS: 36415; 80048; 80074; 82962; 85018; 85025; 85027; 85049; 86850; 86900; 86901; 86920; 87641; G0378; A4649; A9270-GY; C1757; C1768; J0690; J1644; J2250; J2370; J2405; J2597; J2704; J3010; J3490; J7030; J7040; J7050; P9016; P9047

== ENCOUNTER 2020-12-02 07:34 | Day surgery (SDC) | payer MEDICARE, OTHER ==
[~2020-12-02 07:34] MED LIST changes: -MIDAZOLAM 2 MG/2 ML INJ IV NR; -SODIUM CHLORIDE 0.9% 1000 ML 1,000 ML IV SCH; -fentaNYL 100 MCG/2 ML INJ IV PRN
[2020-12-02] MEDS ORDERED: LIDOCAINE MPF (2%) 20 MG/1 ML VIAL 5 ML ONE (07:49)
[2020-12-02] MEDS ORDERED: fentaNYL 100 MCG/2 ML INJ ONE (07:49)
[2020-12-02] MEDS ORDERED: propofoL 200 MG/20 ML VIAL IV ONE ×2 (07:50→10:19)
[2020-12-02] MEDS ORDERED: HEPARIN 10,000 UNITS/10 ML VIAL ONE (08:18)
[2020-12-02] MEDS ORDERED: BUPIVACAINE/PF (0.5%) 5 MG/1 ML 30 ML VIAL INFILTRATI ONE ×3 (08:18→10:31)
[2020-12-02] MEDS ORDERED: SODIUM CHLORIDE P/F VIAL 10 ML 10 ML ONE (08:18)
[2020-12-02] MEDS ORDERED: SODIUM CHLORIDE 0.9% 250ML 250 ML ONE (08:19)
[2020-12-02] MEDS ORDERED: rifAMPin 600 MG VIAL ONE (08:19)
[2020-12-02] MEDS ORDERED: SODIUM CHLORIDE 0.9% 500 ML 500 ML ONE (08:19)
[2020-12-02] MEDS ORDERED: LIDOCAINE 1%/EPINEPHRINE 1:100,000 VIAL (20 ML) INFILTRATI ONE (08:19)
[2020-12-02] MEDS ORDERED: THROMBIN (RECOMBINANT) 5,000 UNIT VIAL TP ONE (08:20)
[2020-12-02] MEDS ORDERED: GELATIN SPONGE SIZE 100 TP ONE (08:20)
[2020-12-02 08:28] LABS: Hematocrit 32.4 % (30.3-42.9); Hemoglobin 10.8 gm/dl (10.1-14.3); Mean Corpuscular HGB Conc 34 % (30-34); Mean Corpuscular Volume 86 fl (79-97); Platelet Count 107 K/mm3 (140-440); Red Blood Count 3.79 M/mm3 (3.65-5.03)
[2020-12-02 08:48] LABS: Calcium 8.7 mg/dL (8.4-10.2)
[2020-12-02] MEDS ORDERED: ONDANSETRON 4 MG/2 ML INJ IV PRN (08:48)
[2020-12-02] MEDS ORDERED: HYDROmorphone 1 MG/1 ML INJ IV PRN ×2 (08:48)
--- NOTE | 2020-12-02 08:49 | Anesthesia Day of Surgery ---
Anesthesia Day of Surgery - Day of Surgery Patient Examined: Yes Patient H&P Reviewed: Yes Patient is NPO: Yes
[2020-12-02] MEDS ORDERED: SODIUM CHLORIDE 0.9% 1000 ML 1,000 ML ONE (08:52)
--- NOTE | 2020-12-02 08:53 | Anesthesia Consultation ---
Anesthesia Consult and Med Hx Date of service: 12/02/20 - Airway Anesthetic Teeth Evaluation: Poor ROM Head & Neck: Adequate Mental/Hyoid Distance: Adequate Mallampati Class: Class III Intubation Access Assessment: Probably Good - Pre-Operative Health Status ASA Pre-Surgery Classification: ASA3 Proposed Anesthetic Plan: General - Pre-Anesthesia Comment Pre-Anesthesia Comments: Discussed GA vs regional/MAC. Patient requests GA. 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
[2020-12-02] MEDS ORDERED: SODIUM CHLORIDE 0.9% 1000 ML 1,000 ML IV SCH (09:00)
[2020-12-02] MEDS ORDERED: INSULIN LISPRO 100 UNIT/ML SUB-Q NR (09:00)
[2020-12-02] MEDS ORDERED: SODIUM CHLORIDE 0.9% IRR 1,500 ML BOTTLE IR ONE (10:30)
[2020-12-02] MEDS ORDERED: HEPARIN 10,000 UNITS/10 ML VIAL IV ONE (10:30)
[2020-12-02] MEDS ORDERED: SODIUM CHLORIDE 0.9% 500 ML IVPB IV ONE (10:31)
[2020-12-02] MEDS ORDERED: PHENYLEPHRINE/NS 1,000 MCG/10 ML SYRINGE (OR USE) IV ONE (11:02)
[2020-12-02] MEDS ORDERED: ePHEDrine SULFATE 50 MG/1 ML INJ ONE (11:02)
[2020-12-02] MEDS ORDERED: IOHEXOL 300 MG/ML 50ML IV ONE (12:36)
--- NOTE | 2020-12-02 13:28 | Short Stay Summary ---
Short Stay Documentation Date of service: 12/02/20 Narrative H&P: See H&P - History H&P: obtained from office - Allergies and Medications Current Medications: Allergies No Known Allergies Allergy (Verified 12/01/20 13:55) Home Medications Medication Instructions Recorded Confirmed Last Taken Type Bimatoprost [Lumigan 0.01%] 1 drop OD QPM 04/17/16 12/01/20 12/01/20 History Timolol 0.5% [Timoptic] 1 drops OP BID 04/17/16 12/02/20 12/02/20 07:00 History Amlodipine Besylate 10 mg PO DAILY 11/11/20 12/01/20 12/01/20 History AtorvaSTATin 10 mg PO DAILY 11/11/20 12/01/20 12/01/20 History Lasix 40 mg PO DAILY 11/11/20 12/01/20 12/01/20 History carvediloL 12.5 mg PO DAILY 11/11/20 12/01/20 12/01/20 History HYDROcodone/APAP 7.5-325 [[place] 1 each PO Q6HR PRN #40 tablet 11/12/20 12/02/20 1 Week Ago Rx 7.5/325] ~11/25/20 Active Medications Hydromorphone HCl (Hydromorphone 1 Mg/1 Ml Inj) 0.25 mg IV Q10MIN PRN PRN Reason: Pain, Moderate (4-6) Stop: 12/02/20 23:00 Hydromorphone HCl (Hydromorphone 1 Mg/1 Ml Inj) 0.5 mg IV Q10MIN PRN PRN Reason: Pain , Severe (7-10) Stop: 12/02/20 23:00 Cefazolin Sodium (Ancef/Sterile Water 2 Gm/20 Ml) 2 gm in 20 mls @ 80 mls/hr IV PREOP NR; Protocol Stop: 12/02/20 23:01 Sodium Chloride (Nacl 0.9% 1000 Ml) 1,000 mls @ 42 mls/hr IV DIRECT BRIAN Last Admin: 12/02/20 09:00 Dose: 42 mls/hr Documented by: Ondansetron HCl (Ondansetron 4 Mg/2 Ml Inj) 4 mg IV ONCE PRN PRN Reason: Nausea And Vomiting Stop: 12/02/20 23:00 - Brief post op/procedure progress note Date of procedure: 12/02/20 Pre-op diagnosis: Complications of Dialysis Access Post-op diagnosis: same Procedure: 1. Open Revision of Left Arm Arteriovenous Graft with Open Thrombectomy w/ 4 Antonio and Revision of Venous Anastamosis to the Cephalic Vein 2. Diagnositic Fistulagram with Central Venogram 3. Angioplasty and Stent of Cephalic Arch with 8 x 10 cm and 7 x 10 Viabahn Stent Graft and 8 x 40 Conquest Balloon 4. Radiologic Supervision with Interpretation Anesthesia: JACOB Surgeon: JAYLYN BYRD Estimated blood loss: other (250ml) Pathology: none Condition: stable - Disposition Condition at discharge: Good Disposition: DC-01 TO HOME OR SELFCARE Short Stay Discharge Plan Activity: other (No heavy lifting with left arm) Wound: open to air, keep clean and dry, other (Okay to wash the left arm wounds with soap and water but do not soak in water for 2 weeks.) Follow up with: JAYLYN BYRD MD [Staff Physician] - 14 Days Prescriptions: HYDROcodone/APAP 7.5-325 [[place] 7.5/325] 1 each PO Q6HR PRN #40 tablet PRN Reason: Pain
--- NOTE | 2020-12-02 13:35 | Operative Report ---
Operative Report Operative Report: Date of Procedure: 12/02/2020 Pre-operative Diagnosis: Complications of Dialysis Access Post-operative Diagnosis: Same Procedure(s): 1. Open Revision of Left Arm Arteriovenous Graft with Open Thrombectomy w/ 4 Antonio and Revision of Venous Anastamosis to the Cephalic Vein 2. Diagnositic Fistulagram with Central Venogram 3. Angioplasty and Stent of Cephalic Arch with 8 x 10 cm and 7 x 10 Viabahn Stent Graft and 8 x 40 Conquest Balloon 4. Radiologic Supervision with Interpretation Surgeon: Emile Smith M.D. Rubber Roller Grinder Operator: None Anesthesia: General Endotracheal Incision EBL: 250 mL Counts: Correct Complications: None Condition: Stable Findings: The venous outflow of the AV graft was obliterated and I was unable to identify the lumen. At the completion of the case the patient had a palpable thrill within the graft and a palpable radial pulse. Specimen: None Indication: The patient is a 50-year-old female with a history of end-stage renal disease who recently had a creation of a left axillary artery to axillary vein loop graft. The graft thrombosed shortly after his creation and there was an attempt to perform percutaneous mechanical thrombectomy however this was unsuccessful. The patient is in need of an open thrombectomy with possible revision of the graft. She was given the risk, benefits, and alternative procedures and consented to the procedure. Angiographic Findings: The diagnostic fistulogram revealed the cephalic vein was atretic and bifurcated prior to emptying into the subclavian vein. The central venous system was patent without evidence of flow-limiting stenosis. After intervention the cephalic vein was widely patent with less than 10% residual stenosis and no evidence of thrombus within the stent graft that were placed. Description of Procedure: The patient was brought to the operating room and laid in supine position. After general endotracheal anesthesia was achieved her left arm was prepped and draped in normal sterile fashion. A 10 blade was used to reopen the axillary incision and curved Mayos were used to dissect down to the venous anastomosis. Upon palpation of the graft the graft was noted to have a pulsatile characteristic that was likely due to the intervention that was attempted the day prior which included giving TPA. This likely dwelled within the graft overnight lysing thrombus. I systemically heparinized the patient with 3000 units of heparin IV and then placed a DeBakey clamp on the graft just distal to the venous anastomosis and then used an 11 blade to create a small graftotomy. I used Laws scissors to extend that graftotomy towards the venous anastomosis and explored the vein. Exploration of the vein revealed that there was significant scar at the venous anastomosis and I cannot identify the orifice of the axillary vein. I decided that I would have to revise the venous anastomosis and find an additional vein to use as the venous outflow. I used ultrasound to identify the cephalic vein near the deltopectoral groove. I made an incision over the cephalic vein and then transected the graft off of the venous anastomosis. I was able to identify the graft within the previous tract and then pulled the graft from within the tract towards the new incision of the cephalic vein. I beveled the end of the graft and then dissected the cephalic vein circumferentially. I removed the clamp from the graft and allow any residual thrombus to be flushed from the graft. I then clamped the cephalic vein using 2 bulldog clamps and created a venotomy using an 11 blade and Laws scissors. I then created an end to side anastomosis using a 6-0 Prolene in running fashion. Prior to completing the anastomosis I released the clamp from the graft allowing any possible thrombus to be flushed and then passed a 4 Antonio to ensure that there was no thrombus within the arterial inflow. I then reclamped the graft and then completed the anastomosis. I removed the clamp and then used a 21-gauge micropuncture needle to access the graft towards the venous outflow. I accessed the graft just distal to the venous anastomosis and was able to advance a 0.018 micropuncture wire through the anastomosis and into the cephalic vein. I removed the needle and advanced the micropuncture sheath into the cephalic vein and performed a diagnostic fistulogram with the previously described findings I removed the inner cannula and wire and then was able to manipulate a 0.035 floppy Glidewire into the central venous system. I then advanced an 8 [place] sheath over the floppy Glidewire and performed a diagnostic central venogram with the previously described findings. I advanced a vertebral catheter over the Glidewire and exchanged the Glidewire for a 0.035 Amplatz wire and then attempted to advance an 8 x 100 Covera stent graft into position in the distal cephalic arch however the delivery catheter was too stiff and actually ripped the vein. I removed the Covera stent graft and was able to advance the vertebral catheter back over the Amplatz wire and exchanged the wire for a 0.018 V18 Wire. Once the V 18 wire was in position I then advanced a 8 x 10 cm Viabahn Stent Graft into position and deployed it. I initially postdilated the Viabahn stent graft with a 6 x 100 Jones Balloon and then advanced a 7 x 10 cm Viabahn Stent Graft which had approximately 2 cm of overlap in the initially placed Viabahn Stent Graft and extended into the proximal portion of the bovine Artegraft, which had been disrupted from the anastomosis. I postdilated the 7 x 10 cm Viabahn Stent Graft with the 6 x 100 Jones Balloon. I then postdilated both stent graft with an 8 x 40 Conquest Balloon which resulted in less than 10% residual stenosis. I then used a 4-0 Prolene to secure the Bovine Artegraft to the Viabahn Stent Graft with 3 interrupted sutures. Once this was completed I removed my 8 [place] sheath from the graft and closed the graftotomy using 6-0 Prolene in interrupted fashion. At that point the graft had a palpable thrill. Hemostasis within both wounds was achieved with a combination of direct pressure and QuickClot. Once hemostasis was achieved the wounds were anesthetized with 0.5% Marcaine and closed in 2 layers using 3-0 Vicryl in running fashion the deep dermal layers and 4-0 Monocryl in running fashion the subcuticular layers and dressed with Dermabond. The patient tolerated the procedure well. All sponge, needle, and instrument counts were correct. The patient was taken to the recovery area in stable condition.
[2020-12-02] MEDS ORDERED: diphenhydrAMINE 50 MG/ML VIAL IV NR (13:50)
--- NOTE | 2020-12-02 14:43 | Fluoroscopy Report ---
Intraoperative fluoroscopy was utilized for a left upper extremity venogram. Fluoroscopy time: 7 minutes 23 seconds. Fluoroscopic images: 6. Signer Name: John Whelan MD Signed: 12/02/2020 2:39 PM Workstation Name: [id number]
[2020-12-02 14:59] VITALS: BP 127/73
--- NOTE | 2020-12-02 15:12 | Post Anesthesia Evaluation ---
- Post Anesthesia Evaluation Patient Participated: Yes Airway Patent: Yes Stable Respiratory Function: Yes Nausea/Vomiting: No Temp > 96.8F: Yes Pain Manageable: Yes Adequeate Hydration: Yes Anesthesia Complications: No Block Receding Appropriately: Not Applicable Patient on Ventilator: No
== END 2020-12-02 14:45 | disposition home or self-care (01) ==
LOC: OR 07:34
PROVIDERS: ATTEND Surgery Vascular Surgery
DX: T82.868A Thrombosis due to vascular prosthetic devices, implants and grafts, initial encounter (principal); I12.0 Hypertensive chronic kidney disease with stage 5 chronic kidney disease or end stage renal disease; E11.22 Type 2 diabetes mellitus with diabetic chronic kidney disease; N18.6 End stage renal disease; E11.69 Type 2 diabetes mellitus with other specified complication; E78.5 Hyperlipidemia, unspecified; D64.9 Anemia, unspecified; E11.51 Type 2 diabetes mellitus with diabetic peripheral angiopathy without gangrene; Z98.890 Other specified postprocedural states; Z79.899 Other long term (current) drug therapy; Z91.19 Patient's noncompliance with other medical treatment and regimen; Z86.73 Personal history of transient ischemic attack (TIA), and cerebral infarction without residual deficits; Z86.2 Personal history of diseases of the blood and blood-forming organs and certain disorders involving the immune mechanism
CPT/HCPCS: 36415; 36833; 36908; 80048; 82962; 85027; A4649; C1725; C1751; C1757; C1769; C1874; J0690; J1644; J2370; J2704; J3010; J3490; J7030; J7040; J7050; Q9967; J1815

== ENCOUNTER 2020-12-03 15:14 | Day surgery (SDC) | payer MEDICARE, OTHER ==
[2020-12-03] MEDS ORDERED: SODIUM CHLORIDE 0.9% 500 ML 500 ML IV SCH (16:00)
[2020-12-03] MEDS ORDERED: HEPARIN/NS 5000 UNIT/500ML 1,000 ML IR ONE ×2 (17:22→18:54)
[2020-12-03] MEDS ORDERED: LIDOCAINE (2%) 20 MG/1 ML VIAL 20 ML MDV INFILTRATI ONE (17:22)
[2020-12-03] MEDS ORDERED: ONDANSETRON 4 MG/2 ML INJ ONE (17:23)
[2020-12-03] MEDS ORDERED: ceFAZolin/Water 2 GM/20 ML 2 GM/20 ML SYRINGE IV ONE (17:23)
[2020-12-03] MEDS: fentaNYL 100 MCG/2 ML INJ ONE ×3 (17:42→18:43)
[2020-12-03] MEDS: MIDAZOLAM 2 MG/2 ML INJ ONE ×3 (17:42→18:44)
[2020-12-03] MEDS: HEPARIN 10,000 UNITS/10 ML VIAL ONE ×2 (18:01→18:48)
[2020-12-03] MEDS ORDERED: NITROGLYCERIN SYRINGE 3 ML ONE (18:14)
[2020-12-03] MEDS ORDERED: NITROGLYCERIN 600 MCG/3 ML SYRINGE INTRA-ARTE ONE (18:16)
--- NOTE | 2020-12-03 19:29 | Short Stay Summary ---
Short Stay Documentation Date of service: 12/03/20 Narrative H&P: See H&P - History H&P: obtained from office - Allergies and Medications Current Medications: Allergies No Known Allergies Allergy (Verified 12/01/20 13:55) Home Medications Medication Instructions Recorded Confirmed Last Taken Type RX: Bimatoprost [[place] 0.01%] 1 drop OD QPM 04/17/16 12/03/20 12/03/20 History RX: Timolol 0.5% [Timoptic] 1 drops OP BID 04/17/16 12/03/20 12/03/20 History Amlodipine Besylate 10 mg PO DAILY 11/11/20 12/03/20 12/03/20 History AtorvaSTATin 10 mg PO DAILY 11/11/20 12/03/20 12/03/20 History carvediloL 12.5 mg PO DAILY 11/11/20 12/03/20 12/03/20 History Dapagliflozin Propanediol [Farxiga] 10 mg PO DAILY 12/03/20 12/03/20 12/03/20 History Active Medications Sodium Chloride (Nacl 0.9% 500 Ml) 500 mls @ 50 mls/hr IV DIRECT BRIAN Last Admin: 12/03/20 17:22 Dose: 50 mls/hr Documented by: - Brief post op/procedure progress note Date of procedure: 12/03/20 Pre-op diagnosis: Complications of Dialysis Access Post-op diagnosis: same Procedure: 1. Ultrasound-Guided Access Right Common Femoral Artery 2. Diagnostic Thoracic Aortogram (No Previous Films for Comparison) 3. Diagnostic Left Lower Extremity Angiogram (The Patient Had a Clinical Change) 4. Diagnostic Left Arm Fistulogram (The Patient Had a Clinical Change) 5. Angioplasty of Left Axillary Artery with 7 x 80 IN.PACT Drug-Coated Balloon 6. Angioplasty of Left Brachial Artery with 6 x 150 IN.PACT Drug-Coated Balloon 7. Angioplasty of Left Ulnar Artery with 3.0-2.5 x 210 Nanocross Balloon 8. Percutaneous Mechanical Thrombectomy of Left Axillary Artery with AngioJet Catheter 9. Angioplasty of Left Arm AV Graft with 8 x 40 EverCross Balloon 10. Percutaneous Mechanical Thrombectomy of Left Arm AV Graft with 8 x 40 EverCross Balloon and 6 [place] Multipurpose Guide Catheter 11. Closure of Right Femoral Arteriotomy with Pro-[place] Closure Device 12. Radiologic Supervision with Interpretation 13. Monitored Moderate Sedation (Total Anesthesia Time: 98 Minutes) Anesthesia: local, other (Monitored Moderate Sedation) Surgeon: JAYLYN BYRD Estimated blood loss: minimal Pathology: none Condition: stable - Disposition Condition at discharge: Good Disposition: DC-01 TO HOME OR SELFCARE Short Stay Discharge Plan Activity: other (No strenuous activity for 24 hours) Wound: remove dressing (Okay to remove pressure dressing in 4 hours) Follow up with: JAYLYN BYRD MD [Staff Physician] - 14 Days Prescriptions: Clopidogrel [Plavix] 75 mg PO QDAY #90 tablet
[2020-12-03] MEDS ORDERED: HYDROcodone/ACETAMINOPHEN 5-325 MG TAB PO PRN (19:33)
--- NOTE | 2020-12-03 19:36 | Operative Report ---
Operative Report Operative Report: Date of Procedure: 12/03/2020 Pre-operative Diagnosis: Complications of Dialysis Access Post-operative Diagnosis: Same Procedure(s): 1. Ultrasound-Guided Access Right Common Femoral Artery 2. Diagnostic Thoracic Aortogram (No Previous Films for Comparison) 3. Diagnostic Left Lower Extremity Angiogram (The Patient Had a Clinical Change) 4. Diagnostic Left Arm Fistulogram (The Patient Had a Clinical Change) 5. Angioplasty of Left Axillary Artery with 7 x 80 IN.PACT Drug-Coated Balloon 6. Angioplasty of Left Brachial Artery with 6 x 150 IN.PACT Drug-Coated Balloon 7. Angioplasty of Left Ulnar Artery with 3.0-2.5 x 210 Nanocross Balloon 8. Percutaneous Mechanical Thrombectomy of Left Axillary Artery with AngioJet Catheter 9. Angioplasty of Left Arm AV Graft with 8 x 40 EverCross Balloon 10. Percutaneous Mechanical Thrombectomy of Left Arm AV Graft with 8 x 40 EverCross Balloon and 6 [place] Zealander Multipurpose Guide Catheter 11. Closure of Right Femoral Arteriotomy with Pro-[place] Closure Device 12. Radiologic Supervision with Interpretation 13. Monitored Moderate Sedation (Total Anesthesia Time: 98 Minutes) Surgeon: Emile Smith M.D. Operations Staff Specialist Security: None Anesthesia: Local/Monitored Moderate Sedation Total Anesthesia Time: 90 Minutes EBL: Minimal Counts: Correct Complications: None Condition: Stable Specimen: None Indication: The patient is a 50-year-old female with a history of end-stage renal disease who recently underwent revision of her left axillary artery to axillary vein loop graft. She presented to the office with complaints of numbness in her left hand. She had a diminished pulse in her left radial artery and is in need of a diagnostic left upper extremity angiogram with possible intervention. She was given the risk, benefits, and alternative procedures and consented to the procedure. Angiographic Findings: The thoracic aortic angiogram revealed that the thoracic cord appeared to be patent without evidence of flow-limiting stenosis. The origin of the great vessels appear to be patent without evidence of flow-limiting stenosis. The diagnostic left upper extremity angiogram revealed that the left subclavian artery was patent without evidence of flow-limiting stenosis. The vertebral artery was tortuous but patent without evidence of flow-limiting stenosis. The proximal axillary artery was patent without evidence of flow-limiting stenosis. There was no flow seen in the axillary artery distal to the arterial anastomosis of the loop graft. After advancing the catheter distal to the anastomosis the remainder the axillary artery was patent however there was 50% stenosis in the brachial artery. The radial and ulnar arteries are patent however the ulnar artery was diffusely stenotic at approximately 80 to 85% with minimal flow in the palmar arch. The radial artery was patent throughout its course without flow-limiting stenosis. The diagnostic fistulogram revealed thrombus within the graft however this was not flow-limiting and this was minimal near the arterial inflow. There was a 70% stenosis in the graft near the venous outflow and a stent that he been previously placed within the cephalic arch. There was approximately 60% stenosis within the fistula near the curve. After intervention the axillary artery was patent with less than 20% residual stenosis. There was no residual thrombus noted at the anastomosis after treatment. The brachial artery had less than 10% residual stenosis. The ulnar artery was patent with less than 10% residual stenosis in the palmar arch field with flow into the digital branches. The stenosis within the cephalic arch was reduced to less than 10%. Thrombus remained within the graft however this was reduced to very minimal thrombus and again this was not flow-limiting. Description of Procedure: The patient was brought to the Electrical Prospecting Operator and laid in supine position. After timeout was performed the right groin was prepped and draped in normal sterile fashion. Ultrasound was used to identify the right common femoral artery and confirm patency. Once patency was confirmed the overlying skin and soft tissue was anesthetized with lidocaine. An 11 blade was used to make a small stab incision and then a curved hemostat was used with ultrasound guidance to bluntly dissect down to the anterior surface of the right common femoral artery. A 21- gauge micropuncture needle was used with ultrasound guidance into the right common femoral artery and a 0.018 micropuncture wire was advanced to the artery. The needle was removed and the micropuncture sheath was placed by Seldinger technique. The inner cannula and wire were removed and a 0.035 Bentson wire was advanced into the artery. The micropuncture sheath was then exchanged for 5 [place] Ze[place]ander sheath by Seldinger technique. A Navicross catheter was advanced over the Bentson wire and into the a sending aorta and a diagnostic thoracic aortogram was performed with the previously described findings. The subclavian artery was then cannulated with the Navicross catheter and Bentson wire and a diagnostic left upper extremity angiogram was performed with the previously described findings. I then advanced a 0.035 advantage wire into the graft and exchanged the 5 [place] Ze[place]ander sheath for 6 [place]ander 90 cm destination sheath by Seldinger technique. At this point I systemically heparinized the patient with 4000 units of heparin IV. I then used the Navicross catheter and the advantage wire to cannulate the occluded axillary artery which was confirmed by angiogram. I performed angioplasty of the occluded axillary artery with a 7 x 80 IN.PACT Drug-Coated Balloon which resulted in less than 20% residual stenosis. I performed angioplasty of the brachial artery with a 6 x 150 IN.PACT Drug-Coated Balloon which resulted in less than 10% residual stenosis. I advanced the Navicross catheter and a 0.018 V18 wire into the ulnar artery and then exchanged the V 18 wire for 0.014 Choice PT wire and then performed angioplasty of the ulnar artery using a 3.0-2.5 x 210 Nanocross Balloon with a result of less than 10% residual stenosis. There was a significant amount of spasm in the artery so I injected 600 mcg of nitroglycerin. There is still was somewhat sluggish flow however the arteries were patent. I advanced the advantage wire into the graft and then performed angioplasty of the areas of stenosis within the graft using an 8 x 40 EverCross balloon with a result of less than 10% residual stenosis. I then used a 6 [place] multipurpose guide catheter to aspirate thrombus from within the graft resulted in minimal residual thrombus which was not flow- limiting. The follow-up angiogram revealed brisk flow of contrast through the graft however there appeared to be some thrombus at the anastomosis going into the distal axillary artery. I advanced the wire into the distal axillary artery and then used an AngioJet catheter to aspirate the thrombus resulted in no residual thrombus and flow now going into both the graft and the distal axillary artery. At this point I pulled the sheath and wire into the abdominal aorta and then remove the sheath and used a Pro-glide closure device to close the right femoral arteriotomy. A sterile dressing was then applied to the right groin entry area and the patient was transported to the recovery area in stable condition.
[2020-12-03] MEDS ORDERED: CLOPIDOGREL 300 MG TAB ONE (19:38)
[2020-12-03] MEDS ORDERED: CLOPIDOGREL 300 MG TAB PO ONE (20:00)
[2020-12-03 20:27] VITALS: BP 166/83
== END 2020-12-03 20:55 | disposition home or self-care (01) ==
LOC: CATHLABREC 15:14
PROVIDERS: ATTEND Surgery Vascular Surgery
DX: T82.868A Thrombosis due to vascular prosthetic devices, implants and grafts, initial encounter (principal); I12.0 Hypertensive chronic kidney disease with stage 5 chronic kidney disease or end stage renal disease; E11.22 Type 2 diabetes mellitus with diabetic chronic kidney disease; N18.6 End stage renal disease; E11.51 Type 2 diabetes mellitus with diabetic peripheral angiopathy without gangrene; E11.69 Type 2 diabetes mellitus with other specified complication; E78.5 Hyperlipidemia, unspecified; Z79.899 Other long term (current) drug therapy; Z98.890 Other specified postprocedural states; Z86.2 Personal history of diseases of the blood and blood-forming organs and certain disorders involving the immune mechanism; Z86.73 Personal history of transient ischemic attack (TIA), and cerebral infarction without residual deficits; Y82.8 Other medical devices associated with adverse incidents; Y92.89 Other specified places as the place of occurrence of the external cause
CPT/HCPCS: 36415; 36905; 37184; 37246; 37247; 75710; 82962; 84132; 99156; 99157; C1725; C1757; C1760; C1769; C1887; C2623; J0690; J1644; J2250; J2405; J3010; J7040; Q9967

== ENCOUNTER 2020-12-05 09:46 | Day surgery (SDC) | payer MEDICARE, OTHER ==
[~2020-12-05 09:46] MED LIST changes: +BUPIVACAINE/PF (0.5%) 5 MG/1 ML 30 ML VIAL INFILTRATI ONE; +HEPARIN 10,000 UNITS/10 ML VIAL IV ONE; +SODIUM CHLORIDE 0.9% 500 ML IVPB IRRIGATION ONE; +SODIUM CHLORIDE 0.9% IRR 1,500 ML BOTTLE IR ONE
[2020-12-05] MEDS ORDERED: SODIUM CHLORIDE 0.9% 1000 ML 1,000 ML IV SCH (10:30)
[2020-12-05] MEDS ORDERED: HYDROmorphone 1 MG/1 ML INJ IV PRN ×2 (10:57)
[2020-12-05] MEDS ORDERED: ONDANSETRON 4 MG/2 ML INJ IV PRN (10:57)
[2020-12-05] MEDS ORDERED: fentaNYL 100 MCG/2 ML INJ IV ONE (10:57)
--- NOTE | 2020-12-05 10:58 | Anesthesia Day of Surgery ---
Anesthesia Day of Surgery - Day of Surgery Patient Examined: Yes Patient H&P Reviewed: Yes Patient is NPO: Yes
[2020-12-05] MEDS ORDERED: MIDAZOLAM 2 MG/2 ML INJ IV NR (11:00)
[2020-12-05 11:03] LABS: Hematocrit 21.3 % (30.3-42.9); Mean Corpuscular HGB Conc 33 % (30-34); Mean Corpuscular Volume 87 fl (79-97); Platelet Count 81 K/mm3 (140-440); Red Blood Count 2.45 M/mm3 (3.65-5.03); Red Cell Distribution Width 14.7 % (13.2-15.2)
[2020-12-05 11:43] LABS: Calcium 8.5 mg/dL (8.4-10.2)
[2020-12-05] MEDS ORDERED: SODIUM CHLORIDE 0.9% 500 ML 500 ML IV ONE (12:00)
[2020-12-05] MEDS ORDERED: HEPARIN 10,000 UNITS/10 ML VIAL ONE (12:29)
[2020-12-05] MEDS ORDERED: SODIUM CHLORIDE 0.9% 500 ML 500 ML ONE (12:29)
[2020-12-05] MEDS ORDERED: BUPIVACAINE/PF (0.5%) 5 MG/1 ML 30 ML VIAL INFILTRATI ONE (12:29)
[2020-12-05] MEDS ORDERED: LIDOCAINE MPF (2%) 20 MG/1 ML VIAL 5 ML ONE ×2 (12:48→14:04)
[2020-12-05] MEDS ORDERED: propofoL 200 MG/20 ML VIAL IV ONE (12:48)
[2020-12-05] MEDS ORDERED: fentaNYL 100 MCG/2 ML INJ ONE ×2 (12:48→15:30)
[2020-12-05] MEDS ORDERED: HEPARIN 2,000 UNIT in SODIUM CHLORIDE 0.9% 500 ML 500 ML IR ONE (13:45)
[2020-12-05] MEDS ORDERED: SODIUM CHLORIDE 0.9% 500 ML 500 ML IV NR (13:56)
[2020-12-05] MEDS ORDERED: PHENYLEPHRINE/NS 1,000 MCG/10 ML SYRINGE (OR USE) IV ONE (14:04)
[2020-12-05] MEDS ORDERED: rifAMPin 600 MG VIAL ONE (14:15)
[2020-12-05] MEDS ORDERED: SODIUM CHLORIDE P/F VIAL 10 ML 10 ML ONE (14:15)
[2020-12-05] MEDS ORDERED: rifAMPin 600 MG in SODIUM CHLORIDE 0.9% 50 ML IR ONE (14:21)
--- NOTE | 2020-12-05 16:07 | Short Stay Summary ---
Short Stay Documentation Date of service: 12/05/20 Narrative H&P: See H&P - History H&P: obtained from office - Allergies and Medications Current Medications: Allergies No Known Allergies Allergy (Verified 12/01/20 13:55) Home Medications Medication Instructions Recorded Confirmed Last Taken Type RX: Bimatoprost [Lumigan 0.01%] 1 drop OD QPM 04/17/16 12/04/20 12/04/20 History RX: Timolol 0.5% [Timoptic] 1 drops OP BID 04/17/16 12/04/20 12/04/20 History Amlodipine Besylate 10 mg PO DAILY 11/11/20 12/04/20 12/04/20 History AtorvaSTATin 10 mg PO DAILY 11/11/20 12/04/20 12/04/20 History carvediloL 12.5 mg PO DAILY 11/11/20 12/04/20 12/04/20 History Clopidogrel [Plavix] 75 mg PO QDAY #90 tablet 12/03/20 12/04/20 12/04/20 Rx RX: Dapagliflozin Propanediol 10 mg PO DAILY 12/03/20 12/04/20 12/04/20 History [Farxiga] Active Medications Hydromorphone HCl (Hydromorphone 1 Mg/1 Ml Inj) 0.25 mg IV Q10MIN PRN PRN Reason: Pain, Moderate (4-6) Hydromorphone HCl (Hydromorphone 1 Mg/1 Ml Inj) 0.5 mg IV Q10MIN PRN PRN Reason: Pain , Severe (7-10) Cefazolin Sodium (Ancef/Sterile Water 2 Gm/20 Ml) 2 gm in 20 mls @ 80 mls/hr IV PREOP NR; Protocol Stop: 12/05/20 23:59 Sodium Chloride (Nacl 0.9% 1000 Ml) 1,000 mls @ 42 mls/hr IV DIRECT BRIAN Last Admin: 12/05/20 10:55 Dose: 42 mls/hr Documented by: Sodium Chloride (Nacl 0.9% 500 Ml) 500 mls @ 0 mls/hr IV ONCE NR Stop: 12/06/20 13:55 Midazolam HCl (Midazolam 2 Mg/2 Ml Inj) 2 mg IV PREOP NR Stop: 12/05/20 23:59 Last Admin: 12/05/20 11:10 Dose: 2 mg Documented by: Ondansetron HCl (Ondansetron 4 Mg/2 Ml Inj) 4 mg IV ONCE PRN PRN Reason: Nausea And Vomiting - Brief post op/procedure progress note Date of procedure: 12/05/20 Pre-op diagnosis: Complications of Dialysis Access Post-op diagnosis: same Procedure: 1. Patch Angioplasty of Left Axillary Artery with Bovine Pericardial Patch 2. Revision of Left Arm Axillary Artery to Axillary Vein AV Graft with Banding Using 0 Silk Tie Near the Arterial Anastomosis Anesthesia: GETA Surgeon: JAYLYN BYRD Estimated blood loss: other (250 mL) Pathology: none Condition: stable - Disposition Condition at discharge: Good Disposition: DC-01 TO HOME OR SELFCARE Short Stay Discharge Plan Activity: other (No heavy lifting with left arm) Wound: remove dressing (Remove the dressing and Kolton bandage in 48 hours) Follow up with: JAYLYN BYRD MD [Staff Physician] - 14 Days
--- NOTE | 2020-12-05 16:16 | Operative Report ---
Operative Report Operative Report: Date of Procedure: 12/05/2020 Pre-operative Diagnosis: Complications of Dialysis Access Post-operative Diagnosis: Same Procedure(s): 1. Patch Angioplasty of Left Axillary Artery with Bovine Pericardial Patch 2. Revision of Left Arm Axillary Artery to Axillary Vein AV Graft with Banding Using 0 Silk Tie Near the Arterial Anastomosis Surgeon: Emile Smith M.D. Client Portfolio Manager: None Anesthesia: General Endotracheal Anesthesia EBL: 250 mL Counts: Correct Complications: None Condition: Stable Findings: There was a palpable thrill in the graft and a palpable radial pulse at the completion of the case. Specimen: None Indication: The patient is a 50-year-old female with a history of end-stage renal disease who had creation of a left axillary artery to axillary vein arteriovenous graft that has required revision after thrombosing. She then began complaining of neurologic complaints in the left hand and required a left upper extremity angiogram that demonstrated stenosis with near total occlusion of the left axillary artery. After intervention she continued to have complaints secondary to persistent stenosis so she is in need of a revision of the artery with patch angioplasty to resolve the stenosis. She has been given the risk, benefits, and alternative procedures and consented to the procedure. Description of Procedure: The patient was brought to the operating room and laid in supine position. After general endotracheal anesthesia was achieved her left arm was prepped and draped in normal sterile fashion. A 10 blade was used to reopen her axillary incision and curved hemostats were used to cut the sutures. There was a hematoma within the wound and upon evacuating hematoma the patient was noted to have pinpoint bleeding coming from the axillary artery at the arterial anastomosis. This was controlled with a 6-0 suture and [id number] fashion. Once the bleeding was controlled the axillary artery was dissected circumferentially both proximal and distal to the anastomosis of the arteriovenous graft. The patient was systemically heparinized with 3000 units of heparin IV and then the axillary artery, both proximal and distal to the anastomosis, was controlled with DeBakey clamps as well as controlling the arteriovenous graft just distal to the arterial anastomosis. An 11 blade was used to create a small arteriotomy and Laws scissors was used to continue the arteriotomy from just distal to the anastomosis to just proximal to the anastomosis. A bovine pericardial patch, that had been soaked in rifampin, was used to perform patch angioplasty using two 6-0 Prolene's in running fashion. Prior to completing the closure both the arterial inflow and outflow were flashed and reclamped. The graft was then flashed and reclamped. The arteriotomy was flushed with heparinized saline and then the arterial closure was completed. Clamps were released allowing flow into the graft and the hand. The graft had a palpable thrill. The radial pulse was easily palpable with compression, which was not the case prior to the operation. I decided to band the graft to decrease the flow within the graft. I used a 0 silk tie and slowly cinched it down around the graft, just distal to the arterial anastomosis, to decrease the flow in the graft. I cinched the tie down until there was a palpable pulse in the radial artery as well as a palpable thrill in the graft. Once I reached this point I completed the tie of the 0 silk. I then achieved hemostasis within the wound with a combination of Quick Clot and Tisseel. Once hemostasis had been achieved I anesthetized the wound with 0.5% Marcaine and closed the wound using 2-0 Ethilon in an interrupted vertical mattress fashion and mackenzie. I then dressed the wound with an island dressing and a 4 inch Kol[place] bandage to apply light pressure. The patient tolerated the procedure well. All sponge, needle, and instrument counts were correct. The patient was transported to the recovery area in stable condition.
[2020-12-05] MEDS ORDERED: HEPARIN 10,000 UNIT/1 ML VIAL ONE (16:22)
[2020-12-05] MEDS ORDERED: HEPARIN 10,000 UNIT/1 ML VIAL IV PRN (16:29)
[2020-12-05 20:27] VITALS: BP 180/92
== END 2020-12-05 09:47 | disposition home or self-care (01) ==
LOC: OR 09:46
PROVIDERS: ATTEND Surgery Vascular Surgery
DX: T82.898A Other specified complication of vascular prosthetic devices, implants and grafts, initial encounter (principal); I12.0 Hypertensive chronic kidney disease with stage 5 chronic kidney disease or end stage renal disease; E11.22 Type 2 diabetes mellitus with diabetic chronic kidney disease; N18.6 End stage renal disease; E11.51 Type 2 diabetes mellitus with diabetic peripheral angiopathy without gangrene; D64.9 Anemia, unspecified; E11.69 Type 2 diabetes mellitus with other specified complication; E78.5 Hyperlipidemia, unspecified; Z98.890 Other specified postprocedural states; Z79.899 Other long term (current) drug therapy; Z86.718 Personal history of other venous thrombosis and embolism; Z86.73 Personal history of transient ischemic attack (TIA), and cerebral infarction without residual deficits; Y92.89 Other specified places as the place of occurrence of the external cause; Y82.8 Other medical devices associated with adverse incidents
CPT/HCPCS: 36415; 36832; 36907; 80048; 82962; 85027; 86850; 86900; 86901; 86920; C1768; C9250; J0690; J1644; J2250; J2370; J2704; J3010; J3490; J7030; J7040; P9016